=== PATIENT | female | born 1985 | race Caucasian/White ===

== ENCOUNTER 2022-01-26 20:29 | Emergency (ER) | payer OTHER, SELFPAY ==
[2022-01-26 20:43] VITALS: BP 127/96; PULSE 73; RESP 16; TEMP 36.3; O2SAT 99
[2022-01-26 21:00] VITALS: BP 126/82; PULSE 74; RESP 16; O2SAT 98
--- NOTE | 2022-01-26 21:17 | CRLHL7_ITS ---
For Patients: As a result of the Century Cures Act, medical imaging exams and procedure reports are released immediately into your electronic medical record. You may view this report before your referring provider. If you have questions, please contact your health care provider. INDICATION: Right upper quadrant abdomen pain. TECHNIQUE: Ultrasound abdomen limited. Sonographic images of the right upper quadrant were obtained using schmidt-scale and color Doppler images. COMPARISON: None. FINDINGS: Liver: Normal in size and echotexture. No suspicious masses. No intrahepatic biliary dilatation. Gallbladder: A 9 mm stone is in the gallbladder neck. Gallbladder is mostly decompressed creating artificial wall thickening. No pericholecystic fluid. Common bile duct: 4 mm. Pancreas: Unremarkable. Right kidney: Normal in size. Normal echotexture and cortex. No suspicious masses, stones, or hydronephrosis. Vasculature: Proximal abdominal aorta and IVC are unremarkable. IMPRESSION: Single prominent gallbladder stones in the gallbladder neck. Remainder of exam is unremarkable. No additional findings to suggest acute cholecystitis. Dictated by Paolo Méndez MD @ 01/26/2022 10:58:07 PM (Electronically Signed)
--- NOTE | 2022-01-26 21:19 | ED.GENADULT ---
HPI - General Adult General Time Seen by Provider: 21:19 Date Seen: 01/26/22 Chief complaint: Abdominal Pain Stated complaint: RT SIDE ABDOMINAL PAIN,CHILLS/FEVER Time Seen by Provider: 01/26/22 21:01 Source: patient Mode of arrival: ambulatory Limitations: no limitations History of Present Illness HPI narrative: 36-year-old female who comes in with about a week of right upper abdominal pain radiating into the right back. This is been fairly constant and is described as aching. Does not seem to be worse with movement or eating. Nausea without vomiting. Looser stools than usual. Denies urinary symptoms. But yesterday felt ill with fatigue and some achiness, feels better today. No cough, shortness of breath, chest pain, or breathing difficulty. Has not taken anything today for her symptoms, did try Advil a couple days ago as well as Tums and [id number] antacids with minimal improvement. No prior surgeries. Home COVID test was negative and test was negative although patient has an IUD. Related Data Allergies Allergy/AdvReac Type Severity Reaction Status Date / Time amoxicillin Allergy Intermediate Rash Verified 01/03/22 09:55 Sulfa (Sulfonamide Allergy Intermediate Verified 01/26/22 20:51 Antibiotics) methylprednisolone Allergy Mild Hives Verified 01/03/22 09:55 oxycodone Allergy Mild Rash Verified 01/03/22 09:55 Clavulanate Allergy Intermediate Rash Uncoded 01/03/22 09:55 Review of Systems Status of ROS: Reports: 10 or more systems reviewed and unremarkable except as noted in History and below [facility] Medical History Acute bronchitis with symptoms greater than 10 days Depression Gestational diabetes mellitus (11/25/11) History of abnormal cervical Papanicolaou smear (11/25/11) History of adenomatous polyp of colon (12/16/19) History of ovarian cyst Surgical History History of sinus surgery (2011) Family History Paternal Grandfather Coronary artery disease Mother Diabetes Anxiety Depression Father Anxiety Social History Narrative: Does not exercise- will start again , RN [employer], works from home, 2 kids Non-smoker Social drinker- 0-1/week Smoking Status: Never smoker Do you use any of these nicotine containing products: None Second hand tobacco smoke exposure: No How often do you have a drink containing alcohol: never How often do you have six or more drinks on one occasion: Never AUDIT-C Alcohol total score: 0 Non-prescribed substance use: denies use Exam Narrative: Exam Narrative: General: Well-developed and well-nourished, no acute distress Head: Atraumatic and normocephalic Eyes: Pupils are equal reactive, extraocular motions intact, conjunctiva clear ENT: External nose and ears are normal, posterior pharynx without erythema or exudate Neck: No midline cervical tenderness, full spontaneous range of motion the neck, trachea midline, no adenopathy Heart: Regular rate and rhythm no murmurs or thrills Lungs: Clear to auscultation bilaterally without wheezes or crackles Abdomen: Soft, epigastric tenderness, nondistended with active bowel sounds Musculoskeletal: No tenderness, deformity, or edema Neurologic: Awake, alert, and oriented x3, no gross focal neurologic deficits, cranial nerves intact as tested Psych: Mood and affect are appropriate Skin: No rashes Const: Vital Signs, click to edit/add: Vital Signs - 24 hr 01/26/22 20:43 01/26/22 21:00 Temperature 97.3 F L Pulse Rate [Right Pulse Oximeter] 73 74 Respiratory Rate 16 16 Blood Pressure [Ri ght Upper Arm] 127/96 H 126/82 Pulse Oximetry 99 98 Oxygen Delivery Me thod Room Air Room Air Documenting provider has reviewed patient's vital signs: yes Course Course Hospital Course: Patient seen examined, prior records are reviewed. Differential diagnosis includes but not limited to gastritis, gastric ulcer, colitis, pancreatitis, acute cholecystitis, diverticulitis, appendicitis, urinary tract infection, bowel obstruction, perforation, kidney stone. Patient with aching right upper quadrant abdominal pain radiating to the right flank. Location and description seem to suggest acute cholecystitis or biliary colic, however minimal tenderness on exam and symptoms do not seem to be related to eating. Colitis also possible. Appendicitis less likely she has no right lower quadrant tenderness. Acute hepatitis possible, patient does not appear jaundiced. Labs and right upper quadrant ultrasound are ordered. Patient declines pain medication. Urinalysis ordered as well as this could be an atypical pyelonephritis or ureteral stone presentation. Reevaluation(s) Reevaluation #1: Labs so far reassuring with normal white blood cell count, normal LFTs. Urinalysis is not consistent with infection. Time: 22:10 Reevaluation #2: Ultrasound demonstrates a mobile gallstone, no pericholecystic fluid, no wall thickening, no Damon sign. No definite etiology for patient's seem so far, symptoms certainly could be related from biliary colic with her mobile gallstone intermittently causing obstruction but no indication of acute cholecystitis or biliary obstruction at this point. COVID test is ordered due to mental as it body aches, CT scan of the abdomen pelvis is ordered. If this is negative, patient be discharged home with symptom management. Time: 22:31 Reevaluation #3: Patient recheck. We discussed labs and ultrasound findings. We discussed CT scan. In absence of lab or physical findings of severe intra-abdominal infection or inflammation, no abdominal tenderness, normal white blood cell count, remaining labs reassuring, likelihood of intra-abdominal pathology is low. Patient agrees with plan to defer CT scan at this time. We discussed dietary treatment for biliary colic. COVID and influenza tests are pending. Time: 22:43 Vital Signs Vital signs: Initial Vital Signs Temperature 97.3 F L 01/26/22 20:43 Temperature Source Temporal Artery Scan 01/26/22 20:43 Pulse Rate 73 01/26/22 20:43 Pulse Rhythm 01/26/22 20:43 Respiratory Rate 16 01/26/22 20:43 Blood Pressure 127/96 H 01/26/22 20:43 Blood Pressure Mean 106 01/26/22 20:43 Blood Pressure Position Semi-Fowlers 01/26/22 20:43 Pulse Oximetry 99 01/26/22 20:43 Oxygen Delivery Method 01/26/22 20:43 Vital Signs Temperature 97.3 F L 01/26/22 20:43 Pulse Rate 73 01/26/22 20:43 Respiratory Rate 16 01/26/22 20:43 Blood Pressure 127/96 H 01/26/22 20:43 Pulse Oximetry 99 01/26/22 20:43 Oxygen Delivery Method 01/26/22 20:43 Temperature 97.3 F L 01/26/22 20:43 Pulse Rate 74 01/26/22 21:00 Respiratory Rate 16 01/26/22 21:00 Blood Pressure 126/82 01/26/22 21:00 Pulse Oximetry 98 01/26/22 21:00 Oxygen Delivery Method 01/26/22 21:00 Medical Decision Making Medical Records Medical records reviewed: Yes I reviewed the patient's medical records Lab Data Lab results reviewed: Yes I reviewed the patient's lab results Labs: Lab Results 01/26/22 01/26/22 01/26/22 Range/Units 21:30 21:30 21:30 WBC 7.29 (4.50-11.00) K/uL RBC 4.56 (4.00-5.20) m/uL Hgb 13.6 (12.0-16.0) gm/dL Hct 40.3 (33.0-51.0) % MCV 88 (80-100) fL MCH 30 (26-34) pg MCHC 34 (32-36) gm/dL RDW Coeff of Kavin 11.9 (11.5-15.5) % Plt Count 236 (140-440) K/uL Neut % (Auto) 47.0 (42.0-72.0) % Lymph % (Auto) 43.1 (20-44) % [place] % (Auto) 7.8 (0.0-11.0) % Eos % (Auto) 1.1 (0.0-7.0) % Baso % (Auto) 0.3 (0.0-3.0) % Neut # (Auto) 3.40 (1.7-7.0) K/uL Lymph # (Auto) 3.10 H (0.90-2.90) K/uL [place] # (Auto) 0.60 (0.00-0.90) K/UL Eos # (Auto) 0.10 (0.00-0.50) K/uL Baso # (Auto) 0.00 (0.00-0.30) K/uL Abs Immat Gran (auto) 0.10 (0.00-0.30) K/uL Imm/Tot Granulo (auto) 0.7 % Sodium 138 (135-149) mmol/L Potassium 3.4 L (3.6-5.1) mmol/L Chloride 104 (96-114) mmol/L Carbon Dioxide 31 (20-32) mmol/L BUN 12 (5-24) mg/dL Creatinine 0.7 (0.5-1.5) mg/dL Estimated GFR 114 ml/min Glucose 88 (60-115) mg/dL Calcium 8.7 (8.4-10.6) mg/dL Total Bilirubin < 0.1 L (0.1-1.5) mg/dL Direct Bilirubin 0.0 (0.0-0.5) mg/dL AST 32 (12-35) U/L ALT 24 (4-35) U/L Alkaline Phosphatase 93 (40-150) U/L Total Protein 7.3 (6.0-8.3) g/dL Albumin 4.3 (3.3-5.0) g/dL Lipase 165 (23-300) U/L Urine Color (Yellow) Urine Appearance (Clear) Urine pH (5.0-8.5) Ur Specific [place] (1.000-1.030) Urine Protein (Negative) Urine Glucose (UA) (Negative) Urine Ketones (Negative) Urine Blood (Negative) Urine Nitrite (Negative) Urine Bilirubin (Negative) Urine Urobilinogen (0.2-1.0) Ur Leukocyte Esterase (Negative) Urine RBC (0-2) Urine WBC (0-5) Ur Squamous Epith Cells (None-Few) Amorphous Sediment (None) Urine Bacteria (None) Urine Mucus (None) 01/26/22 Range/Units 21:35 WBC (4.50-11.00) K/uL RBC (4.00-5.20) m/uL Hgb (12.0-16.0) gm/dL Hct (33.0-51.0) % MCV (80-100) fL MCH (26-34) pg MCHC (32-36) gm/dL RDW Coeff of Kavin (11.5-15.5) % Plt Count (140-440) K/uL Neut % (Auto) (42.0-72.0) % Lymph % (Auto) (20-44) % [place] % (Auto) (0.0-11.0) % Eos % (Auto) (0.0-7.0) % Baso % (Auto) (0.0-3.0) % Neut # (Auto) (1.7-7.0) K/uL Lymph # (Auto) (0.90-2.90) K/uL [place] # (Auto) (0.00-0.90) K/UL Eos # (Auto) (0.00-0.50) K/uL Baso # (Auto) (0.00-0.30) K/uL Abs Immat Gran (auto) (0.00-0.30) K/uL Imm/Tot Granulo (auto) % Sodium (135-149) mmol/L Potassium (3.6-5.1) mmol/L Chloride (96-114) mmol/L Carbon Dioxide (20-32) mmol/L BUN (5-24) mg/dL Creatinine (0.5-1.5) mg/dL Estimated GFR ml/min Glucose (60-115) mg/dL Calcium (8.4-10.6) mg/dL Total Bilirubin (0.1-1.5) mg/dL Direct Bilirubin (0.0-0.5) mg/dL AST (12-35) U/L ALT (4-35) U/L Alkaline Phosphatase (40-150) U/L Total Protein (6.0-8.3) g/dL Albumin (3.3-5.0) g/dL Lipase (23-300) U/L Urine Color Yellow (Yellow) Urine Appearance Clear (Clear) Urine pH 8.0 (5.0-8.5) Ur Specific [place] 1.020 (1.000-1.030) Urine Protein Negative (Negative) Urine Glucose (UA) Negative (Negative) Urine Ketones Negative (Negative) Urine Blood Negative (Negative) Urine Nitrite Negative (Negative) Urine Bilirubin Negative (Negative) Urine Urobilinogen 0.2 (0.2-1.0) Ur Leukocyte Esterase Negative (Negative) Urine RBC 0-2 (0-2) Urine WBC 0-2 (0-5) Ur Squamous Epith Cells None (None-Few) Amorphous Sediment Moderate A (None) Urine Bacteria Few A (None) Urine Mucus Few A (None) Discharge Plan Discharge Clinical Impression: Cholelithiasis, Biliary colic, Right lateral abdominal pain Condition: Improved Instructions: Biliary Colic (ED), Gallstones (ED) Additional Instructions: Tylenol or ibuprofen for pain. Follow-up with general surgery. Activity Level: No Restrictions Discharge Diet: Low Fat/Low Cholesterol Follow Up/Referrals: Almaz Rose PA-C [Primary Care Provider] - She Arana MD [Staff Physician] - Shanae Aguilera MD [Staff Physician] - Stand Alone Forms: [employer] Info Instructions
[2022-01-26 21:44] LABS: Appearance Urine Clear (Clear); Bilirubin Urine Negative (Negative); Blood Urine Negative (Negative); Color Urine Yellow (Yellow); Glucose Urine Negative (Negative); Ketones Urine Negative (Negative); Leukocyte Esterase Urine Negative (Negative); Nitrite Urine Negative (Negative); Protein Urine Negative (Negative); Urobilinogen Urine 0.2 (0.2-1.0)
[2022-01-26 21:55] LABS: Amorphous Sediment Urine Moderate; Bacteria Urine Few; Mucus Urine Few; RBC Urine 0-2 (0-2); WBC Urine 0-2 (0-5)
[2022-01-26 21:58] LABS: Hematocrit 40.3 % (33.0-51.0); Hemoglobin* 13.6 gm/dL (12.0-16.0); Mean Corpuscular HGB Conc 34 gm/dL (32-36); Mean Corpuscular Hemoglobin 30 pg (26-34); Mean Corpuscular Volume 88 fL (80-100); Red Blood Count 4.56 m/uL (4.00-5.20); White Blood Count* 7.29 K/uL (4.50-11.00)
[2022-01-26 21:59] LABS: Basophils Percent Auto 0.3 % (0.0-3.0); Eosinophils Percent Auto 1.1 % (0.0-7.0); Immature Granulocytes Pct Auto 0.7 %; Lymphocytes Percent Auto 43.1 % (20-44); Monocytes Percent Auto 7.8 % (0.0-11.0); Platelet Count* 236 K/uL (140-440); RDW Coefficient of Variation % 11.9 % (11.5-15.5); Slide Review Reflex No
[2022-01-26 22:01] LABS: Albumin* 4.3 g/dL (3.3-5.0)
[2022-01-26 22:02] LABS: Chloride* 104 mmol/L (96-114); Potassium* 3.4 mmol/L (3.6-5.1); Sodium* 138 mmol/L (135-149)
[2022-01-26 22:05] LABS: Alanine Aminotransferase* 24 U/L (4-35); Alkaline Phosphatase* 93 U/L (40-150); Aspartate Amino Transferase* 32 U/L (12-35); Blood Urea Nitrogen* 12 mg/dL (5-24); Carbon Dioxide* 31 mmol/L (20-32); Creatinine* 0.7 mg/dL (0.5-1.5); Estimated Glomerular Filt Rate 114 ml/min; Lipase* 165 U/L (23-300); Total Protein* 7.3 g/dL (6.0-8.3)
[2022-01-26 22:06] LABS: Bilirubin Total* < 0.1 mg/dL (0.1-1.5); Calcium* 8.7 mg/dL (8.4-10.6); Glucose* 88 mg/dL (60-115)
[2022-01-26 22:58] VITALS: BP 140/84; PULSE 80; RESP 18; O2SAT 99
[2022-01-26 23:18] LABS: PCR FLU A Negative PCR FLU A (Negative); PCR FLU B Negative PCR FLU B (Negative)
[2022-01-26 23:20] LABS: SARS PCR* Negative SARS-CoV-2 (Negative)
== END 2022-01-26 22:58 | disposition home or self-care (01) ==
PROVIDERS: Emergency Provider Family Medicine; PCP Physician Assistant Medical
DX: K80.51 Calculus of bile duct without cholangitis or cholecystitis with obstruction (principal)
CPT/HCPCS: 36415; 76705; 80048; 80076; 81001; 83690; 85025; 87086; 87502; 87635; 99284

== ENCOUNTER 2022-03-10 07:11 | Day surgery (SDC) | payer OTHER, SELFPAY ==
[2022-03-10] VITALS (17 sets, daily range): BP systolic 89–130; BP diastolic 50–82; PULSE 66–88; RESP 14–16; TEMP 36.8–37.1; O2SAT 92–100; BMI 33.4
[2022-03-10 07:41] LABS: Ur HCG Qualitative* Negative (Negative)
[2022-03-10] MEDS: LACTATED RINGERS 1000 ML 1,000 ML 100 ML IV ×2 (07:58→10:30)
[2022-03-10] MEDS: SODIUM CHLORIDE 0.9 % (FLUSH) 10 ML SYRINGE IVF (07:58)
[2022-03-10] MEDS: CIPROFLOXACIN 400 MG/200 ML inj IVPB (08:30)
--- NOTE | 2022-03-10 08:49 | SUR.OPER ---
Patient was transferred from [facility] to OR4 by JACOBY Tomas. Patient was assisted to transfer to OR table. Patient was covered by 2 warm blankets.
[2022-03-10] MEDS: BUPIVACAINE 0.25% 30 ML INJECTION (09:10)
--- NOTE | 2022-03-10 09:15 | P.GSOP_ITS ---
Operative Note Date of procedure: 03/10/22 Type of Procedure: Laparoscopic cholecystectomy Procedure Description: After discussing the risks and benefits of the procedure, the patient signed informed consent.? The operative site was marked and the patient was brought to the operating room and placed on the operating table in supine position.? Care was taken to pad the patient's pressure points.?? The patient was then intubated by anesthesia.?? The operative site was then prepped and draped in the usual sterile fashion.? A time-out was then performed. Entrance to the abdomen was gained via a 5 mm Visiport in the left upper quadrant. The abdomen was insufflated and briefly surveyed for signs of injury. There was none. A 10 mm umbilical port was placed as well as 2 working ports along the right costal margin, all under direct vision. The patient was then p laced in reverse Trendelenburg position with the right side up. The gallbladder fundus was grasped and retracted cephalad. The infundibulum was grasped. A combination of hook cautery and blunt dissection was used to carefully dissect out the cystic duct and artery until they could clearly be seen entering the gallbladder without any intervening structures. The gallbladder was dissected off the cystic plate to achieve the critical view. Once this was achieved the cystic duct and artery were each clipped with 2 clips proximally and 1 clip distally and transected with the scissors. The gallbladder was then taken off of the liver bed and removed from the abdomen using an Endo-Catch bag. The gallbladder bed was surveyed for hemostasis which appeared adequate. The umbilical port fascia was closed with 0 Vicryl using a [place] technique. The remaining ports were then removed and the abdomen desufflated. The skin was closed with absorbable subcuticular suture. Sterile dressings were then applied. Instrument sponge and needle counts were correct at the end of the case. The patient was then woken and transferred to the PACU in stable condition. ?? The patient tolerated the procedure well. Findings: CHOLELITHIASIS Anesthesia: GETA Surgeon: Shanae Aguilera MD Estimated blood loss (mL): 5 Condition: stable Disposition: PACU
--- NOTE | 2022-03-10 09:30 | W.ANESCHARGE ---
Anesthesia Charges Start Date/Time Anesthesia Start Date: 03/10/22 Anesthesia Start Time: 08:19 Stop Date/Time Anesthesia Stop Date: 03/10/22 Anesthesia Stop Time: 09:28 Summary Emergency: No
[2022-03-10] MEDS: fentaNYL 100 MCG/2 ML inj 50 MCG IVP ×2 (09:40→10:01)
--- NOTE | 2022-03-10 09:48 | W.ANESCHARGE ---
Anesthesia Charges Start Date/Time Anesthesia Start Date: 03/10/22 Anesthesia Start Time: 08:19 Stop Date/Time Anesthesia Stop Date: 03/10/22 Anesthesia Stop Time: 09:28 Summary Emergency: No
[2022-03-10] MEDS: METOCLOPRAMIDE HCL 5 MG/ML INJ 10 MG IVP (10:11)
[2022-03-10] MEDS: HYDROCODONE-ACETAMIN 5-325 MG 1 TAB PO (12:00)
== END 2022-03-10 12:25 | disposition home or self-care (01) ==
PROVIDERS: Anesthesiology; PCP Physician Assistant Medical; Visit Provider Surgery
PROC: 0FT44ZZ Resection of Gallbladder, Percutaneous Endoscopic Approach (ICD-10-PCS; CPT 47562; principal; 2022-03-10 08:55)
DX: K80.10 Calculus of gallbladder with chronic cholecystitis without obstruction (principal)
CPT/HCPCS: 47562; 00790; 00860; 81025; 88304; A9270; J0330; J0744; J1100; J1885; J2250; J2405; J2704; J2710; J2765; J3010; J3490; J7120

== ENCOUNTER 2023-10-01 07:40 | Outpatient (CLI) | payer OTHER, SELFPAY ==
--- OUTSIDE RECORDS SUMMARY | 2023-10-01 07:43 | XMS_ITS | Data Portability ---
Author Name Unknown Address [address] [place] [address] Phone [phone] Organization [facility] Address [address] [place] [address] Care Team Providers Care Track Worker Name Role Phone MAGNUS LYLE Primary Care Provider Assessment No assessment recorded. Plan of Treatment Reminders Order Date Submit Date Provider Last Modified By Organization Details Last Modified Time Details Appointments None recorded. Lab urinalysi s, dipstick 2022 023 [email or web address] [facility], [address], [place], [address], 3 12:35:57 urinalysi s, dipstick 2022 023 [email or web address] [facility], [address], [place], [address], 3 10:55:24 Referral pelvic floor therapy referral - Please contact patient to schedule 2022 023 [email or web address] [facility], [address] [place], [address], 10:47:53 Procedures None recorded. Surgeries None recorded. Imaging None recorded. Medication Orders Flomax 0.4 mg capsule 2022 023 [id number], [address] [place], [place], [phone], 3 12:34:45 oxybutyni n chloride ER 10 mg tablet,ex tended release 24 hr 2022 023 [id number], [address] [place], [place], [phone], 11:01:32 Patient TargetsNo targets recorded. Patient InstructionsNo instructions recorded. Reason for Referral Pelvic Floor Therapy Referra l for Overactive bladder Please contact patient to schedule Referring Physician: Grady Hart, Urology, Encounter Date: 11/24/2022 Results Created Date Observation Date Name Description Value Unit Range Abnormal Flag LastModifiedBy Organization Detail LastModifiedTime 10/14/1910/13/2022 urina lysis , dipst ick pH-Status 6.5 Not Available [facility] [address], [place], [address], 10/13/2022 10:18:23 11/25/19 23 11/24/2022 urina lysis , dipst ick Color-Status Yellow Not Available [facility] [address], [place], [address], 11/24/2022 12:35:04 11/25/19 23 11/24/2022 urina lysis , dipst ick Clarity-Stat us Clear Not Available [facility] [address], [place], [address], 11/24/2022 12:35:04 11/25/19 23 11/24/2022 urina lysis , dipst ick Glucose-Stat us Negati ve Not Available [facility] [address], [place], [address], 11/24/2022 12:35:04 11/25/19 23 11/24/2022 urina lysis , dipst ick Bilirubin-St atus Negati ve Not Available [facility] [address], [place], [address], 11/24/2022 12:35:04 11/25/19 23 11/24/2022 urina lysis , dipst ick Ketones-Stat us Negati ve Not Available [facility] [address], [place], [address], 11/24/2022 12:35:04 11/25/19 23 11/24/2022 urina lysis , dipst ick Sp [place]-Stat us 1.010 Not Available [facility] [address], [place], [address], 11/24/2022 12:35:04 11/25/19 23 11/24/2022 urina lysis , dipst ick pH-Status 7.5 Not Available [facility] [address], [place], [address], 11/24/2022 12:35:04 11/25/19 23 11/24/2022 urina lysis , dipst ick Urobilinogen -Status 0.2 Not Available [facility] [address], [place], [address], 11/24/2022 12:35:04 11/25/19 23 11/24/2022 urina lysis , dipst ick Nitrates-Sta tus negati ve Not Available [facility] [address], [place], [address], 11/24/2022 12:35:04 11/25/19 23 11/24/2022 urina lysis , dipst ick Blood-Status Negati ve Not Available [facility] [address], [place], [address], 11/24/2022 12:35:04 11/25/19 23 11/24/2022 urina lysis , dipst ick Leuko-Status Negati ve Not Available [facility] [address], [place], [address], 11/24/2022 12:35:04 11/25/19 23 11/24/2022 urina lysis , dipst ick Specimen Type Voided Not Available [facility] [address], [place], [address], 11/24/2022 12:35:04 10/11/19 23 02/10/2022 CT, abdom en + pelvi s, w/ contr ast No observ ation record ed. [email or web address] Not Available 10/13/2022 10:57:17 Result Notes None recorded. Procedures Surgical History Date Name Laterality Status Provider Name and Address Organization Details Recorded Time 3 Bladder Scan completed GRADY HART PA-C [address] [place], [place] [address], [place], [address], [facility] 11/24/2022 12:35:01 3 Bladder Scan completed Telma jiang [facility] 10/13/2022 10:18:19 Imaging Results Imaging Date Name Status LastModified by Organiz ation Details LastModified Time 02/10/2022 CT, abdomen + pelvis, w/ contrast completed Information not available 10/13/2022 10:57:17 Procedure Notes None recorded. Medical Equipment None Reported. Allergies Allergen ID Allergen Name Allergen Category Reaction Reaction Severity Criticality Documentation Date Start Date Code Code System Note Provider Name and Address Organization Details Recorded Time 100587 Substance with sulfonami de structure and antibacte rial mechanism of action (substanc e) medicatio n Not available Not available Not available 10/13/2022 30652 8003 SNOMED Telma jiang [facility] 3 10:21:39 510714 oxycodone medicatio n Not available Not available Not available 10/13/2022 7804 RxNorm Telma jiang [facility] 3 10:23:51 944318 methylpre dnisolone medicatio n Not available Not available Not available 10/13/2022 6902 RxNorm Telma Boss [facility] [place] [facility] 3 10:24:06 Medications Name Sig Start Date Stop Date Status Note LastModified by Organization Details LastModified Time prednisone 10 mg tablet TAKE 3 TABLETS BY MOUTH ONCE DAILY WITH A MEAL FOR 2 DAYS THEN TAKE 2 TABLETS EVERY DAY FOR 2 DAYS THEN TAKE 1 TABLET EVERY DAY FOR 2 DAYS 10/13 completed Not Available Not Available Not Available trazodone 50 mg tablet active Not Available Not Available Not Available oxybutynin chloride ER 10 mg tablet,exte nded release 24 hr TAKE 1 TABLET BY MOUTH NEEDED active Not Available Not Available No t Available hydrocodone 5 mg-acetamin ophen 325 mg tablet TAKE 1 TABLET BY MOUTH EVERY 6 HOURS NEEDED FOR PAIN. DO NOT TAKE AT THE SAME TIME ALPRAZOLA M OR OTHER BENZODIAZ EPINE MEDICATIO NS 10/13 completed Not Available Not Available Not Available ciprofloxac in 250 mg tablet 10/13 completed Not Available Not Available Not Available alprazolam 0.5 mg tablet TAKE 1 TABLET BY MOUTH DAILY NEEDED FOR ANXIETY active Not Available Not Available No t Available doxycycline monohydrate 50 mg capsule TAKE ONE CAPSULE BY MOUTH TWICE DAILY WITH FOOD AND WATER 11/24 completed Not Available Not Available Not Available tamsulosin 0.4 mg capsule TAKE 1 CAPSULE BY MOUTH EVERY DAY 11/24 completed Not Available Not Available Not Available amitriptyli ne 10 mg tablet 10/13 completed Not Available Not Available Not Available metronidazo le 0.75 % topical cream APPLY THIN LAYER TO ENTIRE FACE 1-2X DAILY , ONGOING 11/24 completed Not Available Not Available Not Available clindamycin 1 % lotion APPLY THIN LAYER TO ENTIRE FACE ONCE DAILY AT NIGHT 11/24 completed Not Available Not Available Not Available escitalopra m 20 mg tablet active Not Available Not Available Not Available nitrofurant oin monohydrate /macrocryst als 100 mg capsule TAKE 1 CAPSULE BY MOUTH TWICE DAILY FOR 5 DAYS 10/13 completed Not Available Not Available Not Available sulfacetami de sodium-sulf ur 8 %-4 % topical suspension WASH FACE 1-2X DAILY LATHER AND LET SIT FOR SEVERAL MINUTES BEFORE RINSING 11/24 completed Not Available Not Available Not Available Abigail Allergy active Not Available Not Available Not Available Flonase Allergy Relief active Not Available Not Available Not Available Vitals Date Recorded Body height Body mass index (BMI) Body weight Provider Name and Address Organization Details Last Updated DateTime 10/13/2022 165.1 cm 33.3 kg/m2 72746.47 g Telma jiang [facility] 10/13/2022 10:20:55 Date Recorded Body height Body mass index (BMI) Body weight Provider Name and Address Organization Details Last Updated DateTime 11/24/2022 165.1 cm 33.3 kg/m2 65851.47 g GRADY HART PA-C [address] [place] [address] [address], [place], [address] 11/24/2022 12:20:17 Social History Question Answer Notes LastModified by Organizat ion Details LastModified Time Tobacco Smoking Status Never Smoker Telma jiang [facility] 10/13/2022 10:22:48 What Was The Date Of Your Most Recent Tobacco Screening? 11/24/2022 Information not available 11/24/2022 Sex: Female Functional Status None recorded. Mental Status None recorded. Family History Nothing Reported. Medical History Condition Response Diabetes N Sexually Transmitted Infection N Other N Bleeding Disorder N High Blood Pressure N Kidney Stones N High Cholesterol N GERD/Acid Reflux N Heart Disease N Cancer N Lung Disease N Depression N Gynecological History Statement/Question Response Leaking urine with intercourse N Sexually Active? Y Pain with intercourse Y Obstetrics History GPAL:G 2 P 0 0 0 0 Past Encounters Encounter ID Performer Location Encounter Start Date Encounter Closed Date Diagnosis/Indication Diagnosis SNOMED-CT Code [id number] [facility] [address] [place] [address] 10/13/2022 09:57:49 10/17/2022 14:53:39 Dysuria 31044282 Overactive bladder 73087 7000 Cystocele [id number] Incomplete emptying of bladder [id number] GRADY HART PA-C [facility] [address] [place] [address] 11/24/2022 12:14:02 12/01/2022 08:31:32 Overactive bladder [id number] Health Concerns Section Related Observation LastModified by Organization Detai ls LastModified Time None Recorded Concern Status LastModified by Organization Details LastModified Time None Recorded Advance Directives Directive None Recorded Payers Encounter Date Sequence Insurance Name Policy Number Policy Balderas Covered Member ID Balderas Member ID Guarantor Name 11/24/2022 1 [facility] Shanae Paizival [id number] Shanae Spain 10/13/2022 1 [facility] Rosival [id number] Shanae [place] Notes Date Note Type Note Provider Name and Address Organization Details Recorded Time 10/13/2022 text/html HPI Notes: 37yo F referred to urology for bladder pain and urinary frequency. She reports UTI symptoms intermittently since having children (2 vaginal deliveries). Worsening over the last few years. Used to get dysuria/frequency with UTIs, but now feels like infections present with bladder spasm pain which radiates to her low mid-back. Occasionally dysuria, Azo helps. Recently, treated for UTI with [facility] a couple times, antibiotics have helped symptoms. More recently feels bladder discomfort is debilitating at times. Spasm attacks last 1-3 minutes. Tried amitriptyline for possible interstitial cystitis from her PCP but she did not tolerate this. Symptoms worse when drinking alcohol. Multiple recent UCx negative. She does drink a lot of water. Has cut back on alcohol due to worsening symptoms. Previously worked as nurse, held bladder all day. CT AP W in January 2022 reveals non-obstructing 4mm right renal stone, lower pole. Denies hematuria, flank pain. No h/o passing stones, recurrent UTI. Only abdominopelvic surgery is gall baldder removal (2021). UA negative PVR 123cc GRADY HART PA-C [address] [place] [address],[address], [place], [address], [place] [facility] 10/13/2022 16:56:30 11/24/2022 text/html HPI Notes: 36 yo F here for follow up on suprapubic pain, urinary frequency, dysuria. Previously treated for UTIs frequently via [facility], but whenever she gets culture has been negative. Suspected possible OAB vs. IS so saw me in September - also had some incomplete emptying at that time so we started tamsulosin and PRN trial of oxybutynin. Did not tolerate tamsulosin d/t dizziness. Did not try oxybutynin due to fear of retention. Has had improvement / no trouble with dysuria or infections since last visit. Still with occasional suprapubic cramping which radiates to her low back. Alcohol and caffeine trigger symptoms. Usually associated with increased urinary frequency. She does have IUD; unsure if [employer]ICE or bladder pain. Reports she has been doing kegel exercises most of her adult life. Denies hematuria, flank pain. No h/o passing stones, recurrent UTI. PVR 77 cc UA negative ___ -Previously worked as nurse, held bladder all day. -CT AP W in January 2022 reveals non-obstructing 4mm right renal stone, lower pole. -gall baldder removal (2021) GRADY HART PA-C [address] [place] [address],[address], [place], [address], [facility] 11/24/2022 13:24:35 OBGyn Episode No OBEpisode recorded.
--- OUTSIDE RECORDS SUMMARY | 2023-10-01 07:43 | XMS_ITS | Clinical Summary ---
Author Name Unknown Organization [facility] Address [place], [place] [address] Care Team Providers Care Productivity Engineer Name Role Phone Almaz Rose Primary Care Provider Allergies Active Allergy Reactions Criticality Noted Date Comments Methylprednisolone Acetate Other - Descr amilcar In Comment Field 08/20/2020 depression Oxycodone-Acetaminophen Rash,Itching 04/18/2013 Sulfamethoxazole-Trimethopr im Anaphylaxis High 12/01/2018 Lip swelling Medications Medication Sig Dispensed Refills Start Date End Date Status fluticasone (50 mcg per actuation) nasal solution (FLONASE) Inhale 2 Sprays into both nostrils once daily. 1 Bottle 0 04/18/2013 Active ondansetron (ZOFRAN ODT) 4 mg disintegrating tabletIndications:Na usea Take 4 mg by mouth every 8 hours if needed. 30 tablet 1 08/20/2020 Active propranoloL (INDERAL) 20 mg tablet Take 20 mg by mouth. 05/03/2019 Active ALPRAZolam (XANAX) 0.5 mg tabletIndications:An xiety Take 1 tab daily as needed for anxiety. 15 Tablet 02/03/2022 Active fexofenadine HCl (ANTONIO ALLERGY ORAL) Take by mouth. Active traZODone (DESYREL) 50 mg tabletIndications:In somnia, idiopathic TAKE 1 TABLET BY MOUTH AT BEDTIME , MAY REPEAT ONCE 180 Tablet 3 05/15/2023 Active escitalopram oxalate (LEXAPRO) 20 mg tabletIndications:An xiety TAKE 1 TABLET BY MOUTH IN THE MORNING 90 Tablet 1 07/14/2023 Active polyethylene glycol-electrolyte (GOLYTELY) 236-22.74-6.74 -5.86 gram suspensionIndication s:Rectal bleeding Drink 2 liters the day before colonoscopy and 2 liters 6 hours before colonoscopy appointment 4000 mL 09/07/2023 Active Hospital, Clinic, or Other Facility Administered Medication Ordered Dose Route Frequency Start Date End Date Status levonorgestrel intrauterine device (MIRENA) 1 DeviceIndications:Encounter for IUD insertion 1 Device IU Q 5 YEARS 10/30/2020 Active Active Problems Problem Noted Date Diagnosed Date Pap smear for cervical cancer screening 04/30/20 23 Overview: 04/22/2023: NIL/HPV negative Plan: Pap and HPV in 5 years. Encounters Date Type Department Care Team Description 09/10/[address] [address] Jac Reagan MD Appointment Reminder (Colonoscopy 2023 arriving at 0730) 08/27/2023 11:45 AM COAT BASTER Ancillary Procedure [address] [address] 08/27/2023 Travel 08/10/2023 9:15 AM COAT BASTER Ancillary Procedure [address] [address] 08/10/2023 8:10 AM COAT BASTER Office Visit [address] [address] Almaz Rose PA Foot Pain/problem (R foot pain,bottom of foot, can pinpoint spot, no known injury); Rectal Problem (Pain and bleeding, happening more than it did before) 08/10/[address] [address] Jac Reagan MD Referral 08/10/2023 Travel 07/13/[address] [address] Almaz Rose PA Refill Request (Escitalopram Oxalate) from Last 3 Months Immunizations Name Administration Dates Next Due COVID-19 vaccine (BONESUPPORT-Bio NTech 30mcg/0.3mL) 12YO+ BIVALENT SHAMIKA MANSFIELD 05/23/2022 COVID-19 vaccine (SchoologyBio NTech 30mcg/0.3mL) PF, MDV 05/20/2021,11/04/2020,10/14/2020 DTP 02/23/1990, 7,03/20/1985,01/17,1984 Hepatitis A (Adult) 05/03/2019 Hepatitis B (Peds) 07/19/1999,02/28/1999, 999 Human Papilloma Virus Vaccine 01/20/2008, 008,11/18/2006 Influenza Virus, Unspecified 05/27/2004 Influenza, IIV3 (Age 6-35 mos) 3,03/15/2012,04/07/2011,03/26 Influenza, IIV4 03/03/2022,,04/20/2020,05/03,03/20/2016,03/29/2014 Influenza, IIV4 (=>6mos) MDV 03/23/2018,04/09/20 17,04/12/2015 MMR 02/27/2011,01/18/1986 MMRV 1989 Meningococcal Vaccine (Menomune) 03/02/2003 Oral Polio Vaccine 02/23/1990, 7,03/20/1985,01/17,1984 Recombivax Hb (dialysis) 05/29/2022 TD, UNSPECIFIED 12/01/2018 Td (Age >=7 Years) 12/01/2018 Tdap 01/20/2008,11/18/2006 Typhoid (injectable) 07/05/2019 Family History Medical History Relation Name Comments Hypertension Father Other Father substance abuse Insulin resistance Mother Relation Name Status Comments Father Mother Social History Tobacco Use Types Packs/Day Years Used Date Smoking Tobacco: Never Smokeless Tobacco: Never Tobacco Cessation:Counseling Given: Yes Alcohol Use Standard Drinks/Week Comments Not Currently 0 (1 standard drink = 0.6 oz pur e alcohol) very infrequent PHQ-2 Answer Date Recorded PHQ-2 TOTAL SCORE 0 05/23/2022 Social Connections Answer Date Recorded Frequency of Communication with Friends and Fami ly 0 08/10/2023 Financial Resource Strain Answer Date R ecorded Difficulty of Paying Living Expenses 3 08/10/2023 Difficulty of Paying Living Expenses Not on file 08/10/2023 Food Insecurity Answer Date Recorded Worried About Running Out of Food in the Last Ye ar 1 08/10/2023 Transportation Needs Answer Date Record ed Lack of Transportation (Medical) 1 08/10/2023 Housing Stability Answer Date Recorded Unable to Pay for Housing in the Last Year 1 08/10/2023 Sex and Gender Information Value Date Recorded Sex Assigned at Not on file Gender Identity Not on file Sexual Orientation Not on file Obstetrics History Para Term AB IAB SAB Ectopic Multiple Livin g Live Births 2 2 2 2 2 Date Outcome GA Total Labor Labor//3rd Weight Sex Delivery Anes PTL Jany A1 A5 Name Cl in 2010 Term Vag Sulma ng 2013 Term Vag Sulma ng Comments GDM with pregnancies Children doing well Last Filed Vital Signs Vital Sign Reading Time Taken Comments Blood Pressure 121/86 08/10/2023 8:19 AM COAT BASTER Pulse 72 08/10/2023 8:19 AM COAT BASTER Temperature 36.7 ??C (98.1 ??F) 05/23/2022 12:[address] Respiratory Rate - - Oxygen Saturation 100% 05/23/2022 12:23 PM COAT BASTER Inhaled Oxygen Concentration - - Weight 92.5 kg (204 lb) 08/10/2023 8:19 AM COAT BASTER Height 166 cm (5' 5.35) 08/10/2023 8:19 AM COAT BASTER Body Mass Index 33.58 08/10/2023 8:19 AM COAT BASTER Plan of Treatment Upcoming Encounters Date Type Department Care Team (Late st Contact Info) Description 11/03/2023 10:00 AM CDT Office Visit [facility] [address] [place] [address] Jac Reagan MD [address] [place] [address] Health Maintenance Due Date Last Done Comments HIV for age 15-65 09/18/1999 Hepatitis C screening for age 18-79 2002 COVID-19 vaccine series ( season) 2023 05/23/2022, 05/20/2021, 11/04/2020, Additional history exists Depression screening for age 12+ 05/23/2023 05/23/2022, 08/20/2020 Influenza for age 9-49 02/21/2024 , 05/20/2021, 04/20/2020, Additional history exists BMI (ht and wt on same day) for age 18+ 08/10/2024 08/10/2023, 04/22/2023, 03/03/2022, Additional history exists Pap test for age 21-65 04/22/2028 3, 04/22/2023, 04/13/2018 (Verified in Care Everywhere or Patient Record), Additional history exists Tetanus booster 12/01/2028 12/01/2018, 11/20, 01/20/2008, Additional history exists Tdap Completed 01/20/2008, 11/18/2006 Pneumococcal series for age 6-64 Aged Out No longer eligible based on patient's age to complete this topic Procedures Procedure Name Priority Date/Time Associated Diagnosis Comments MR FOOT RIGHT WO Routine 08/27/2023 12:3 7 PM COAT BASTER Foot pain, right XR FOOT 3 VIEWS RIGHT Routine 08/10/2023 9:00 AM COAT BASTER Foot pain, right HPV THIN PREP Routine 04/22/2023 9:57 AM CDT Screening for cervical cancer from Last 3 Months or Most Recently Relevant to Health Maintenance Results * MR FOOT RIGHT WO (08/27/2023 12:37 PM COAT BASTER) Anatomical Region Laterality Modality FOOT R Magnetic Resonan ce 08/28/2023 8:00 AM COAT BASTER Impressions 08/28/2023 8:00 AM COAT BASTER 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 Low-grade stress injury could also contribute to the marrow edema appearance. Dictated by Kye Hilario MD @ 08/28/2023 8:00:07 AM (Electronically Signed) Narrative 08/28/2023 8:00 AM COAT BASTER For Patients: ??As a result of the Cures Act, medical imaging exams and procedure reports are released immediately into your electronic medical record. ??You may view this report before your referring provider. ??If you have questions, please contact your health care provider. INDICATION: One year of foot pain. COMPARISON: Plain film 10 August 2023. TECHNIQUE: Axial PD and STIR, coronal T1 and STIR and sagittal T1 and STIR right forefoot sequences. FINDINGS: Anatomic alignment of the Lisfranc midfoot with no degenerative or inflammatory change. Mild chronic pseudoarthrosis subtle cortical spurring with underlying patchy mild non confluent patchy STIR edema signal between 3rd and 4th proximal metatarsal metaphysis. An no fracture or bone lesion. Physiologic upper normal fluid 1st and 3rd intermetatarsal bursa. Normal metatarsophalangeal joints. Physiologic fluid 1st MTP. Procedure Note Kye Hilario MD - 08/28/2023 For Patients: As a result of the Cures Act, medical imagingexams and procedure reports are released immediately into your electronicmedical record. You may view this report before your referring provider.If you have questions, please contact your health care provider. INDICATION: One year of foot pain. COMPARISON: Plain film 10 August 2023. TECHNIQUE: Axial PD and STIR, coronal T1 and STIR and sagittal T1 and STIR rightforefoot sequences. FINDINGS: Anatomic alignment of the Lisfranc midfoot with no degenerative orinflammatory change. Mild chronic pseudoarthrosis subtle cortical spurringwith underlying patchy mild non confluent patchy STIR edema signal [id number] and 4th proximal metatarsal metaphysis. An no fracture or bone lesion.Physiologic upper normal fluid 1st and 3rd intermetatarsal bursa. Normalmetatarsophalangeal joints. Physiologic fluid 1st MTP. 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 Low-grade stress injury could also contribute to the marrowedema appearance. Dictated by Kye Hilario MD @ 08/28/2023 8:00:07 AM (Electronically Signed) Almaz RILEY MR * XR FOOT 3 VIEWS RIGHT (08/10/2023 9:00 AM COAT BASTER) Anatomical Region Laterality Modality FEET, FOOT R Computed Radiogr aphy Impressions 08/11/2023 2:07 PM COAT BASTER No acute bone abnormality. Dictated by: Hussein Hidalgo MD @ 08/11/2023 08:04:12 Signed by: Hussein Hidalgo MD @08/11/2023 8:04:12 AM (Electronic Signature) Narrative 08/11/2023 2:07 PM COAT BASTER INDICATION: Foot pain, right FINDINGS: Three views of the right foot were obtained. There is no fracture or dislocation. Almaz RILEY [facility] * HPV HIGH RISK (04/22/2023 9:57 AM CDT) TYPE 16 Negative Negative 04/24/2023 1:47 PM CDT [facility] TYPE 18 Negative Negative 04/24/2023 1:47 PM CDT [facility] OTHER HIGH RISK TYPES Negative Negative 04/24/2023 1:47 PM CDT [facility] Other (Cervical) Non-Blood / Unknown 04/22/2023 9:57 AM CDT 04/22/2023 4:53 PM CDT Narrative [facility] - 04/24/2023 1:47 PM CDT HPV types 16, 18, 31, 33, 35, 39, 45, 51, 52, 56, 58, 59, 66 and 68 DNA were undetectable or below the pre-set threshold. Methodology: Yariel John 4800 HPV Test Almaz RI[facility] [address] [place] [address], from Last 3 Months or Most Recently Relevant to Health Maintenance Care Teams Productivity Engineer Relationship Specialty Start Date End Date Almaz Rose PA [address] [place] [address] PCP - General Physician Pattern Layout Worker 10/22/20
--- OUTSIDE RECORDS SUMMARY | 2023-10-01 07:43 | XMS_ITS | Clinical Summary ---
Author Name Unknown Organization [facility] Address [address] [place] [address] Care Team Providers Care Workforce Specialist Name Role Phone Piper Michael MD Primary Care Provider Source Comments You are receiving this document as you are listed as the primary care provider,follow-up provider, or the patient has been referred to you for consultation.This is in compliance with the Medicare and[facility] Hospital[facility] EHR Incentive Program,which states Providers who transition their patient to another setting of careor provider of care or refers their patient to another provider of care shouldprovide summary care record for each transition of care or referral. [facility] Allergies Active Allergy Reactions Criticality Noted Date Comments Amoxicillin-Pot Clavulanate Itching 12/02/19 19 Sulfamethoxazole-Trimethoprim Anaphylaxis High 12/01 Lip swelling Oxycodone-Acetaminophen Itching,Rash 04/13/2018 Medications Medication Sig Dispensed Refills Start Date End Date Status CRANBERRY OR Active ALBUterol sulfate HFA 108 (90 Base) MCG/ACT inhalerIndications:Exerc ise-induced bronchospasm (HRC) Inhale 1-2 Puffs every 4 hours as needed for Wheezing. 1 Inhaler 1 9 Active ondansetron (ZOFRAN-ODT) 4 MG disintegrating tabletIndications:Nausea and Vomiting Take 1 Tablet by mouth every 8 hours as needed. Indications: Nausea and Vomiting 10 Tablet 1 9 Active propranolol (INDERAL) 20 MG tabletIndications:palpit ations Take 1 Tablet by mouth three times a day as needed. Indications: palpitations 30 Tablet 3 9 Active azelastine (ASTELIN) 0.1 % nasal solutionIndications:Seas onal and perennial allergic rhinoconjunctivitis Place 1 [place] into both nostrils two times a day. 30 mL 11 0 Active azelastine (OPTIVAR) 0.05 % ophthalmic solutionIndications:Seas onal and perennial allergic rhinoconjunctivitis Place 1 Drop into both eyes two times daily as needed. 6 mL 3 0 Active Fexofenadine HCl (ANTONIO ALLERGY OR) Acti ve escitalopram oxalate (LEXAPRO) 20 MG tabletIndications:Anxiet y (HRC),PMDD (premenstrual dysphoric disorder) Take 1.5 Tablets by mouth daily. Take 1 tab daily and add 10mg for 2 weeks prior to menses. 135 Tablet 2 0 Active bisacodyl (DULCOLAX) 5 MG enteric coated tablet Take 4 tablets by mouth once at 5 PM the evening before your procedure. 4 Tablet 0 Active polyethylene glycol-electrolyte (GO-LYTELY) 236 g oral solution Take as directed in patient instructions: 2000 ml at 6pm the evening before and 4 hours before leaving home the day of exam. 4000 mL 0 Active ALPRAZolam (XANAX) 0.5 MG tabletIndications:Anxiet y Take 1 Tablet by mouth at bedtime as needed. Indications: Feeling Anxious 30 Tablet 0 Active GIANVI 3-0.02 MG tabletIndications:PMDD (premenstrual dysphoric disorder) TAKE 1 TABLET BY MOUTH DAILY 90 Tablet 1 Active Active Problems Problem Noted Date Diagnosed Date Adenoma of colon 12/28/2019 Overview: Colonoscopy completed 11/2019, repeat in 5 years For tubular adenoma surveillance Chronic constipation 12/18/2019 Overview: Normal CT abd/pelvis, colonoscopy, celiac panel, TSH, Ca. Non-seasonal allergic rhinitis 12/01/2018 Exercise-induced bronchospasm 12/01/2018 Lactose intolerance 12/01/2018 PMDD (premenstrual dysphoric disorder) 8 Anxiety 04/13/2018 Chronic low back pain 04/13/2018 Overview: Herniated L4-L5. Sees chiropractor. Menometrorrhagia 04/13/2018 Immunizations Name Administration Dates Next Due 4vHPV (Gardasil) 01/20/2008,11/02/2007, 7 Chicken Pox - History of Illness 1989 DTP 02/23/1990, 7,03/20/1985,1984,1984 Flu Vac Preserv Free (3+yrs) 05/05/2013, 03/15/2012,04/07/2011,2009 Fluzone Qiv Multidose Vial 0 .25 (6-35 Mos) 03/23/2018,04/09/2017,04/12/2015 HepA Adult (19+ yrs) 05/03/2019 HepB Ped/Adol (0-18 yrs) 07/19/1999,02/28/1999,0 01/24/1999 Influenza IIV4 (Quadrivalent ) 0.5mL (63809) 05/03/2019,03/20/2016,03/29/2014 Influenza, Unspecified Formulation 05/27/2004 MMR 02/27/2011,01/18/1986 MPSV4 (Menomune) 03/02/2003 OPV, Trivalent (Orimune or tOPV) 990,09/15/1986,03/20/1985,1984,1984 Td (7+ yrs) 12/01/2018 Tdap 01/20/2008,11/18/2006 Typhoid (Typhim Vi, IM) 07/05/2019 Family History Medical History Relation Name Comments Adopted Mother Anxiety Mother Tremor Mother Coronary Artery Disease Paternal Grandfather [place] Cancer, Colon Paternal Grandmother Diabetes Paternal Grandmother Cancer, Breast Negative Family History Cancer, Ovary Negative Family History Relation Name Status Comments Father Alive Mother Alive Paternal Grandfather Paternal Grandmother Social History Tobacco Use Types Packs/Day Years Used Date Smoking Tobacco: Never Smokeless Tobacco: Never Alcohol Use Standard Drinks/Week Comments Yes 0 (1 standard drink = 0.6 oz pur e alcohol) 2 weekly PHQ-2 Answer Date Recorded PHQ-2 Score 0 12/09/2019 Sex and Gender Information Value Date Recorded Sex Assigned at Not on file Gender Identity Not on file Sexual Orientation Not on file Last Filed Vital Signs Vital Sign Reading Time Taken Comments Blood Pressure 115/73 12/16/2019 3:45 PM CDT Pulse 64 12/16/2019 4:00 PM CDT Temperature 36.7 ??C (98 ??F) 04/13/2018 10:46 AM CDT Respiratory Rate 16 12/16/2019 3:45 PM CDT Oxygen Saturation 100% 12/16/2019 4:00 PM CDT Inhaled Oxygen Concentration - - Weight 80.7 kg (178 lb) 12/16/2019 2:00 PM CDT Height 165.1 cm (5' 5) 12/16/2019 2:00 PM CDT Body Mass Index 29.62 12/16/2019 2:00 PM CDT Plan of Treatment Health Maintenance Due Date Last Done Comments Hep C Screening (Preventive Services) 1985 Adult Preventive Visit 2002 HPV Vaccine (3 - 3-dose series) 04/13/2008 01/20/2008, 11/02/2007, 11/18/2006 HepA (2 of 2 - Risk 2-dose series) 11/01/2019 05/03/2019 Cervical Cancer Screening 04/13/2021 04/13/2018 Asthma ACT 04/27/2021 04/27/2020, 05/03/2019 COVID-19 Vaccine (3 - 2022- season) 2023 11/04/2020, 10/14/2020 Influenza (#1) 2023 04/20/2020, 04/22, 03/23/2018, Additional history exists Colonoscopy 12/15/2024 12/16/2019 DTaP/Tdap/Td (9 - Tdap) 12/01/2028 12/02/19, 01/20/2008, 11/18/2006, Additional history exists Zoster/Shingles (1 of 2) 2034 IPV (Polio) Completed 02/23/1990, 08/21, 03/20/1985, Additional history exists HepB Completed 07/19/1999, 02/1999, 01/24/1999 MCV4 Aged Out 03/02/2003 No longer eligi ble based on patient's age to complete this topic HIV Screening (Preventive Services) Completed 12/14/2019 Hib Aged Out No longer eligi ble based on patient's age to complete this topic Pneumococcal Aged Out No longer eligi ble based on patient's age to complete this topic Procedures Procedure Name Priority Date/Time Associated Diagnosis Comments ENDOSCOPY, COLON, SCREENING/DIAGNOST IC Routine 12/16/2019 2:54 PM CDT Chronic constipation Right sided abdominal pain Abdominal bloating Hematochezia HIV 1/2 AG/AB 4TH GEN Routine 12/14/2019 9:57 AM CDT Screening for HIV (human immunodeficiency virus) ANATOMICAL PATH LIQUID BASED Routine 04/13/2018 11:30 AM CDT from Last 3 Months or Most Recently Relevant to Health Maintenance Results * Endoscopy, Colon, Screening/Diagnostic (12/16/2019 2:54 PM CDT) 12/16/2019 2:54 PM CDT Narrative [facility] ([facility]) - 12/16/2019 2:54 PM CDT Patient Name: Shanae Spain Procedure Date: 12/16/2019 2:54 PM Date of : 1985 Admit Type: Outpatient Age: 34 Note Status: Finalized Attending MD: Maicol Whittaker , Procedure: ? Colonoscopy Indications: ? Abdominal pain in the right lower ? quadrant, Constipation Providers: ? Maicol Whittaker, Minda Matute RN Patient Profile: ? 34 year old woman with history of ? chronic consipation here for ? evaluation of intemittent ? hematochezia, abdominal pain and ? bloating. Referring MD: ?Piper Michael MD Medicines: ? Midazolam 2 mg IV, Fentanyl 100 ? micrograms IV, Diphenhydramine 50 mg ? IV Complications: ? No immediate complications. Procedure: ? Pre-Anesthesia Assessment: ? - The following statement was ? reviewed with the patient during ? pre-procedure scheduling, and was ? again reviewed with the patient by ? the endoscopist immediately prior to ? the procedure during the consent ? process, with an emphasis on the ? first sentence: With any procedure ? there is a small but inherent risk of ? acquiring infection including, but ? not limited to, the novel coronavirus ? (COVID-19). Please be aware that ? there is a potential for your ? procedure or surgery to be postponed, ? or possibly canceled, if you should ? test positive for COVID-19. There is ? also a potential for postponement of ? your procedure if there is a ? significant reduction in resources ? required to safely perform your ? procedure. ? After I obtained informed consent, ? the scope was passed under direct ? vision. Throughout the procedure, the ? patient's blood pressure, pulse, and ? oxygen saturations were monitored ? continuously. The -[id number] was ? introduced through the anus and ? advanced to the terminal ileum. The ? colonoscopy was performed without ? difficulty. The patient tolerated the ? procedure well. The quality of the ? bowel preparation was evaluated using ? the BBPS ([place] Bowel Preparation ? Scale) with scores of: Right Colon = ? 3, Transverse Colon = 3 and Left ? Colon = 3 (entire mucosa seen well ? with no residual staining, small ? fragments of stool or opaque liquid). ? The total BBPS score equals 9. Findings: ? The terminal ileum appeared normal. ? A 3 mm polyp was found in the ascending colon. The ? polyp was sessile. The polyp was removed with a cold ? snare. Resection and retrieval were complete. ? Verification of patient identification for the ? specimen was done. Estimated blood loss was minimal. ? External hemorrhoids were found during retroflexion. ? The hemorrhoids were small. ? The exam was otherwise without abnormality. Moderate Sedation: ? Moderate (conscious) sedation was administered by the ? endoscopy nurse and supervised by the endoscopist. ? The following parameters were monitored: oxygen ? saturation, heart rate, blood pressure, and response ? to care. Total physician intraservice time was 24 ? minutes. Impression: ?- The examined portion of the ileum ? was normal. ? - One 3 mm polyp in the ascending ? colon, removed with a cold snare. ? Resected and retrieved. ? - External hemorrhoids. ? - The examination was otherwise ? normal. Recommendation: ?- Discharge patient to home (with ? escort). ? - High fiber diet. ? - Await pathology results. ? - Repeat colonoscopy date to be ? determined after pending pathology ? results are reviewed for surveillance. ? - Return to referring physician as ? previously scheduled. Procedure Code(s): ?? --- Professional --- ? 93979, Colonoscopy, flexible; with ? removal of tumor(s), polyp(s), or ? other lesion(s) by snare technique ? 99732, Moderate sedation; each ? additional 15 minutes intraservice ? time ? G0500, Moderate sedation services ? provided by the same physician or ? other qualified health care ? professional performing a ? gastrointestinal endoscopic service ? that sedation supports, requiring the ? presence of an independent trained ? observer to assist in the monitoring ? of the patient's level of ? consciousness and physiological ? status; initial 15 minutes of ? intra-service time; patient age 5 ? years or older (additional time may ? be reported with 52031, as ? appropriate) Diagnosis Code(s): ?? --- Professional --- ? K64.4, Residual hemorrhoidal skin tags ? 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 R10.31, Right lower quadrant pain ? K59.00, Constipation, unspecified CPT copyright 2018 [employer]. All rights reserved. The codes documented in this report are preliminary and upon marine painter review may be revised to meet current compliance requirements. Maicol Whittaker, 12/16/2019 3:38:51 PM Number of Addenda: 0 Note Initiated On: 12/16/2019 2:54 PM ? Endoscopy Report Procedure Note Maicol Whittaker MD - 12/16/2019 Patient Name: Shanae Spain Procedure Date: 12/16/2019 2:54 PM Date of : 1985 Admit Type: Outpatient Age: 34 Note Status: Finalized Attending MD: Maicol Whittaker , Procedure: Colonoscopy Indications: Abdominal pain in the right lower quadrant, Constipation Providers: Maicol Whittaker, Minda Matute RN Patient Profile: 34 year old woman with history of chronic consipation here for evaluation of intemittent hematochezia, abdominal pain and bloating. Referring MD: Piper Michael MD Medicines: Midazolam 2 mg IV, Fentanyl 100 micrograms IV, Diphenhydramine 50 mg IV Complications: No immediate complications. Procedure: Pre-Anesthesia Assessment: - The following statement was reviewed with the patient during pre-procedure scheduling, and was again reviewed with the patient by the endoscopist immediately prior to the procedure during the consent process, with an emphasis on the first sentence: With any procedure there is a small but inherent risk of acquiring infection including, but not limited to, the novel coronavirus (COVID-19). Please be aware that there is a potential for your procedure or surgery to be postponed, or possibly canceled, if you should test positive for COVID-19. There is also a potential for postponement of your procedure if there is a significant reduction in resources required to safely perform your procedure. After I obtained informed consent, the scope was passed under direct vision. Throughout the procedure, the patient's blood pressure, pulse, and oxygen saturations were monitored continuously. The [id number] was introduced through the anus and advanced to the terminal ileum. The colonoscopy was performed without difficulty. The patient tolerated the procedure well. The quality of the bowel preparation was evaluated using the BBPS ([place] Bowel Preparation Scale) with scores of: Right Colon = 3, Transverse Colon = 3 and Left Colon = 3 (entire mucosa seen well with no residual staining, small fragments of stool or opaque liquid). The total BBPS score equals 9. Findings: The terminal ileum appeared normal. A 3 mm polyp was found in the ascending colon. The polyp was sessile. The polyp was removed with a cold snare. Resection and retrieval were complete. Verification of patient identification for the specimen was done. Estimated blood loss was minimal. External hemorrhoids were found during retroflexion. The hemorrhoids were small. The exam was otherwise without abnormality. Moderate Sedation: Moderate (conscious) sedation was administered by the endoscopy nurse and supervised by the endoscopist. The following parameters were monitored: oxygen saturation, heart rate, blood pressure, and response to care. Total physician intraservice time was 24 minutes. Impression: - The examined portion of the ileum was normal. - One 3 mm polyp in the ascending colon, removed with a cold snare. Resected and retrieved. - External hemorrhoids. - The examination was otherwise normal. Recommendation: - Discharge patient to home (with escort). - High fiber diet. - Await pathology results. - Repeat colonoscopy date to be determined after pending pathology results are reviewed for surveillance. - Return to referring physician as previously scheduled. Procedure Code(s): --- Professional --- 19688, Colonoscopy, flexible; with removal of tumor(s), polyp(s), or other lesion(s) by snare technique 52594, Moderate sedation; each additional 15 minutes intraservice time G0500, Moderate sedation services provided by the same physician or other qualified health childcare center administrator performing a gastrointestinal endoscopic service that sedation supports, requiring the presence of an independent trained observer to assist in the monitoring of the patient's level of consciousness and physiological status; initial 15 minutes of intra-service time; patient age 5 years or older (additional time may be reported with 35449, as appropriate) Diagnosis Code(s): --- Professional --- K64.4, Residual hemorrhoidal skin tags D12.2, Benign neoplasm of ascending colon R10.31, Right lower quadrant pain K59.00, Constipation, unspecified CPT copyright 2018 [employer]. All rights reserved. The codes documented in this report are preliminary and upon marine painter review may be revised to meet current compliance requirements. Maicol Whittaker, 12/16/2019 3:38:51 PM Number of Addenda: 0 Note Initiated On: 12/16/2019 2:54 PM Endoscopy Report Piper Michael MD PN GI PROCEDURE ORDERABLES Performing Organization Address City/[facility]/ZIP Co de Phone Number [facility] ([facility]) [place], [place] * HIV 1/2 Ag/Ab 4th Generation (12/14/2019 9:57 AM CDT) HIV 1/2 Antigen/Antib martha (4th generation) Negative (Non Reactive) Negative (Non Reactive) 12/14/2019 1:26 PM CDT [facility] Comment:HIV-1 p24 Antigen an d HIV-1/HIV-2 Antibody not detected Blood Venipuncture / Unknown 12/14/2019 9:57 AM CDT 12/14/2019 10:10 AM CDT Piper Michael MD LAB_1 Performing Organization Address City/[facility] Co de Phone Number [facility] [address] * Pap Smear (04/13/2018 11:30 AM CDT) 04/13/2018 11:3 0 AM CDT Narrative PN SOFT - 04/29/2018 7:12 AM PORTRAIT STUDIO PHOTOGRAPHER FINAL GYNECOLOGICAL CYTOLOGY REPORT Pathology #: [id number] ?Date Obtained: 04/13/2018 ? Date Received: 04/14/2018 INTERPRETATION/RESULTS: Negative for Intraepithelial Lesion or Malignancy. SPECIMEN ADEQUACY: Satisfactory for Evaluation. ??Endocervical cells/transformation zone component present. Verified on 04/24/2018 ??by DELORES MARTIN(ASCP) (electronic signature) CLINICAL NOTES: ?Abnormal bleeding: No, LMP: 03/26/18, Menstrual status: None ?Apply, Current form of therapy: None apply LIQUID BASED PAP SMEAR SPECIMEN TYPE: ?ROUTINE CERVICAL PAP TEST PLEASE NOTE: The pap smear is a screening test designed to aid in the detection of cervical cancer and its precursor lesions. It is not a diagnostic procedure and should not be used as the sole means of detecting cervical cancer. Both false-positive and false-negative reports may occur. Performed at [facility], [address] [place] [address] Piper Michael MD LAB_1 PN SOFT [address] [place] [address] from Last 3 Months or Most Recently Relevant to Health Maintenance Care Teams Workforce Specialist Relationship Specialty [place] [address] [place] [address] PCP - General Family Practice 04/13/18
--- NOTE | 2023-10-01 08:00 | CT_ITS ---
Patient: BASILIO TAYLOR Facility:?[facility] Patient ID:?[id number] Site Patient ID:?[id number]. Site :?1985 Study:?CT-Sinus WITHOUT-10/01/2023 8:53:17 AM Ordering Physician:?DR. MORALES Final Report: Indication: Chronic sinusitis, pressure Technique: Noncontrast CT of the paranasal sinuses. Coronal and sagittal reformats. Bone and soft tissue algorithms. Comparison: CT sinus 08/05/2011 Findings: Frontal sinuses: The frontal sinuses and frontal recesses are clear. Ethmoid air cells: The ethmoid air cells are clear. Sphenoid sinuses: The sphenoid sinuses and sphenoethmoidal recesses are clear. Maxillary sinuses: The maxillary sinuses are clear. The osteomeatal units are clear, although the infundibula are mildly narrowed. Nasal cavity: The nasal septum is relatively midline. Paradoxical right middle turbinate. No large gina bullosa. Osseous structures: No suspicious osseous lesions. No periapical tooth lucencies. Mastoid air cells are clear. Orbits and intracranial structures are unremarkable for technique. IMPRESSION: 1. Clear sinonasal cavities. 2. Patent ostiomeatal units, with mild bilateral infundibular narrowing, stable. 3. Paradoxical right middle turbinate. Please note that all CT scans at this facility use dose modulation, iterative reconstruction, and/or weight-based dosing when appropriate to reduce radiation dose to as low as reasonably achievable. Dictated by Olesya Mercado MD @ 10/01/2023 11:09:57 AM Signed by:?Olesya Mercado MD @10/01/2023 11:09:57 AM (Electronic Signature)
== END 2023-10-01 07:41 | disposition home or self-care (01) ==
LOC: CT 07:41
PROVIDERS: PCP Physician Assistant Medical; Visit Provider Otolaryngology
DX: J32.9 Chronic sinusitis, unspecified (principal)
CPT/HCPCS: 70486

== ENCOUNTER 2023-11-27 14:51 | Outpatient (CLI) | payer OTHER, SELFPAY ==
--- OUTSIDE RECORDS SUMMARY | 2023-12-15 11:19 | XMS_ITS | Clinical Summary ---
[facility] Address [address] [place] [address] Care Team Providers Care Granite Sandblaster Apprentice Name Role Phone Piper Michael MD Primary Care Provider Source Comments You are receiving this document as you are listed as the primary care provider,follow-up provider, or the patient has been referred to you for consultation.This is in compliance with the Medicare andMedicaid EHR Incentive Program,which states Providers who transition their patient to another setting of careor provider of care or refers their patient to another provider of care shouldprovide summary care record for each transition of care or referral. [facility] [employer] Allergies Active Allergy Reactions Criticality Noted Date [...] onal and perennial allergic rhinoconjunctivitis Place [address] [place] into both nostrils two times a day. [...] 07/19/1999,02/28/1999,0 01/24/1999 Influenza IIV4 (Quadrivalent ) 0.5mL (29784) 05/03/2019,03/20/2016,03/29/2014 Influenza, Unspecified Formulation 05/27/2004 MMR 02/27/2011,01/18/1986 MPSV4 (Menomune) 03/02/2003 OPV, Trivalent (Orimune or tOPV) 990,09/15/1986,03/20/1985,1984,1984 Td (7+ yrs) 12/01/2018 Tdap 01/20/2008,11/18/2006 Typhoid (Typhim Vi, IM) 07/05/2019 Family History Medical History Relation Name Comments Adopted Mother Anxiety Mother Tremor Mother Coronary Artery Disease Paternal Grandfather [place] Cancer, Colon Paternal Grandmother Diabetes Paternal Grandmother [...] ACT 04/27/2021 04/27/2020, 05/03/2019 COVID-19 Vaccine (3 season) 2023 11/04/2020, 10/14/2020 Influenza (Season Ended) 2024 020, 05/03/2019, 03/23/2018, Additional history exists Colonoscopy 12/15/2024 12/16/2019 DTaP/Tdap/Td (9 - Tdap) 12/01/2028 12/02/19 19, 01/20/2008, 11/18/2006, Additional history exists Zoster/Shingles (1 [...] oxygen saturations were monitored ? continuously. The -[id number] was ? introduced through the anus and ? advanced to the terminal ileum. The ? colonoscopy was performed without ? difficulty. The patient tolerated the ? procedure well. The quality of the ? bowel preparation was evaluated using ? the BBPS ([place] Bowel Preparation ? Scale) with scores of: [...] Procedure Code(s): ?? --- Professional --- ? 45050, Colonoscopy, flexible; with ? removal of tumor(s), polyp(s), or ? other lesion(s) by snare technique ? 43916, Moderate sedation; each ? additional 15 minutes [...] (additional time may ? be reported with 74938, as ? appropriate) Diagnosis Code(s): ?? --- Professional --- ? K64.4, Residual hemorrhoidal skin tags ? 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 R10.31, Right lower quadrant pain ? K59.00, Constipation, unspecified CPT copyright 2018 [employer]. All rights reserved. The codes documented in this report are preliminary and upon class c truck driver review may be revised to meet current [...] and oxygen saturations were monitored continuously. The CF-IJ208-06 was introduced through the anus and advanced to the terminal ileum. The colonoscopy was performed without difficulty. The patient tolerated the procedure well. The quality of the bowel preparation was evaluated using the BBPS ([place] Bowel Preparation Scale) with scores of: Right [...] previously scheduled. Procedure Code(s): --- Professional --- 19137, Colonoscopy, flexible; with removal of tumor(s), polyp(s), or other lesion(s) by snare technique 63664, Moderate sedation; each additional 15 minutes intraservice time G0500, Moderate sedation services provided by the same physician or other qualified health med care manager performing a gastrointestinal endoscopic service that sedation supports, requiring the presence of an independent trained observer to assist in the monitoring of the patient's level of consciousness and physiological status; initial 15 minutes of intra-service time; patient age 5 years or older (additional time may be reported with 90735, as appropriate) Diagnosis Code(s): --- Professional --- K64.4, Residual hemorrhoidal skin tags D12.2, Benign neoplasm of ascending colon R10.31, Right lower quadrant pain K59.00, Constipation, unspecified CPT copyright 2018 [employer]. All rights reserved. The codes documented in this report are preliminary and upon class c truck driver review may be revised to meet current compliance requirements. Maicol Whittaker, 12/16/2019 3:38:51 PM Number of Addenda: 0 Note Initiated On: 12/16/2019 2:54 PM Endoscopy Report Piper Michael MD PN GI PROCEDURE ORDERABLES Performing Organization Address City/[facility]/ZIP Co de Phone Number GI ([facility]) [place], [place] * HIV 1/2 Ag/Ab 4th Generation (12/14/2019 9:57 AM CDT) HIV 1/2 Antigen/Antib martha (4th generation) Negative (Non Reactive) Negative (Non Reactive) 12/14/2019 1:26 PM CDT [facility] Comment:HIV-1 p24 Antigen an d HIV-1/HIV-2 Antibody not detected Blood Venipuncture / Unknown 12/14/2019 9:57 AM CDT 12/14/2019 10:10 AM CDT Piper Michael MD LAB_1 Performing Organization Address City/[facility]/ZIP Co de Phone Number [facility] [address] * Pap Smear (04/13/2018 11:30 AM CDT) 04/13/2018 11:3 0 AM CDT Narrative PN SOFT - 04/29/2018 7:12 AM TELEPHONE ANSWERING SERVICE OPERATOR FINAL GYNECOLOGICAL CYTOLOGY REPORT Pathology #: [id number] ?Date Obtained: 04/13/2018 ? Date Received: 04/14/2018 [...] and false-negative reports may occur. Performed at , [address] [place] [address] Piper Michael MD LAB_1 PN SOFT [address] [place] [address] from Last 3 Months or Most Recently Relevant to Health Maintenance Care Teams Granite Sandblaster Apprentice Relationship Specialty [place] [id number] [address] [place] [address] PCP - General Family Practice 04/13/18
--- OUTSIDE RECORDS SUMMARY | 2023-12-15 11:19 | XMS_ITS | Clinical Summary ---
Author Organization [employer] [facility] [facility] Address [place], [place] [address] Care Team Providers Care Insurance Claims Representative Name Role Phone Almaz Rose [facility] [...] both nostrils once daily. 1 Bottle 0 3 Active ondansetron (ZOFRAN ODT) 4 mg disintegrating tabletIndications:N ausea Take 4 mg by mouth every 8 hours if needed. 30 tablet 1 1 Active ALPRAZolam (XANAX) 0.5 mg tabletIndications:A nxiety Take 1 tab daily as needed for anxiety. 15 Tablet 2 Active traZODone (DESYREL) 50 mg tabletIndications:I nsomnia, idiopathic TAKE 1 TABLET BY MOUTH AT BEDTIME , MAY REPEAT ONCE 180 Tablet 3 3 Active escitalopram oxalate (LEXAPRO) 20 mg tabletIndications:A nxiety TAKE 1 TABLET BY MOUTH IN THE MORNING 90 Tablet 1 4 Active polyethylene glycol-electrolyte (GOLYTELY) 236-22.74-6.74 -5.86 gram suspensionIndicatio ns:Rectal bleeding Drink 2 liters the day before colonoscopy and 2 liters 6 hours before colonoscopy appointment 4000 mL 4 Active EPINEPHrine (EpiPen) 0.3 mg/0.3 mL auto-injectorIndica tions:Urticaria, idiopathic Inject 0.3 mg (1 Pen) intramuscular each time if needed for Allergic Reaction. 2 Each 3 4 Active cetirizine (ZyrTEC) 10 mg tablet Take 10 mg by mouth once daily. Active Azelastine 205.5 mcg (0.15 %) nasal spray Inhale 205.5 mcg into affected nostril(s) two times daily. Active estradioL (VAGIFEM) 10 mcg tab vaginal tabletIndications:D yspareunia in female Place 1 tablet vaginally daily for 1 weeks then one-two times a week 40 Tablet 4 Active ethinyl estradiol-norelgest rom (Xulane) 150-35 mcg/24 hr patchIndications:Ab normal uterine bleeding Apply 1 Patch on dry, clean, hairless skin once weekly. Do not apply your patch during week 4. Make sure you remove your old patch. This is your patch-free week. Your menstrual period should start during your patch-free week. Begin a new 4-week cycle by applying a new patch on the day after week 4 ends. Repeat the cycle of 3 weekly applications followed by a patch-free week 9 Patch 2 4 Active ethinyl estradiol-norelgest rom (Xulane) 150-35 mcg/24 hr patchIndications:Ab normal uterine bleeding Apply 1 Patch on dry, clean, hairless skin once weekly. Do not apply your patch during week 4. Make sure you remove your old patch. This is your patch-free week. Your menstrual period should start during your patch-free week. Begin a new 4-week cycle by applying a new patch on the day after week 4 ends. Repeat the cycle of 3 weekly applications followed by a patch-free week 9 Patch 4 4 11/18/19 24 Discontinu ed(*Availa bility/For mulary change/Cos t of medication ) estradioL (VAGIFEM) 10 mcg tab vaginal tabletIndications:D yspareunia in female Place 1 tablet vaginally daily for 1 weeks then one-two times a week 40 Tablet 1 4 11/18/19 24 Discontinu ed(*Availa bility/For mulary change/Cos t of medication ) Active Problems Problem Noted Date Diagnosed Date Pap smear for cervical cancer screening 04/30/20 Overview: 04/22/2023: NIL/HPV negative Plan: Pap and HPV in 5 years. Encounters Date Type Department Care Team Description 12/11/2023 Telephone [facility] [address] [place] [id number] Zhane Blanc NP Referral (HYSTEROSONOGRAM) 11/27/2023 Telephone [facility] [address] [place] [address] Zhane Blanc NP Medication Management (Directions Clarification on Estradiol ) 11/17/2023 Refill [facility] [address] [place] [phone] Zhane Blanc NP Refill Request (Estradiol Tablets, Xulane Dis) 11/03/2023 10:00 AM CDT Office Visit [facility] [address] [place] [address] Jac Reagan MD Procedure (colonoscopy) 11/03/2023 Travel 11/02/2023 Telephone [facility] [address] [place] [phone] Hussein Galvan MD 10/28/2023 Telephone [facility] [address] [place] [address] Jac Reagan MD Appointment Reminder (Colonoscopy 11/03/2023 arriving at 10:00 am) 10/22/2023 3:45 PM CDT Orders Only [facility] [address] [place] [address] Lab, [facility] 10/22/2023 Travel 10/14/2023 8:40 AM CDT Office Visit [facility] [address] [place] [phone] Zhane Blanc NP Menstrual Problem 10/13/2023 11:20 AM CDT Telemedicine [facility] [address] [place] [address] Hussein Galvan MD 10/13/2023 Travel 10/01/2023 Orders Only [facility] Scanner 1 scan: (1-Ord) [facility], [place] SINUS WO CON, 10/01/2023 from Last 3 Months Immunizations Name Administration Dates Next Due COVID-19 vaccine (Pfizer-Bio NTech 30mcg/0.3mL) 12YO+ BIVALENT PF, MDV 05/23/2022 COVID-19 vaccine (Pfizer-Bio NTech 30mcg/0.3mL) PF, MDV 05/20/2021,11/04/2020,10/14/2020 DTP 02/23/1990, 7,03/20/1985,01/17,1984 Hepatitis A (Adult) 05/03/2019 Hepatitis B (Peds) 07/19/1999,02/28/1999, 999 Human Papilloma Virus Vaccine 01/20/2008, 008,11/18/2006 Influenza Virus, Unspecified 05/27/2004 Influenza, IIV3 (Age 6-35 mos) 3,03/15/2012,04/07/2011,03/26 Influenza, IIV4 03/03/2022, 1,04/20/2020,05/03,03/20/2016,03/29/2014 Influenza, IIV4 (=>6mos) MDV 03/23/2018,04/09/20 17,04/12/2015 MMR [...] PHQ-2 Answer Date Recorded PHQ-2 TOTAL SCORE 1 10/14/2023 Social Connections Answer Date Recorded Frequency of [...] 2 2 Date Outcome GA Total Labor Labor/2nd/3rd Weight Sex Type Anes PTL Jany A1 A5 Name Clin 2010 Term Vag Living 2012 Term Vag Living Comments GDM with pregnancies Children doing well Last Filed Vital Signs Vital Sign Reading Time Taken Comments Blood Pressure 107/61 11/03/2023 11:23 AM CDT Pulse 57 11/03/2023 11:23 AM CDT Temperature 36.7 ??C (98.1 ??F) 05/23/2022 12:[address] Respiratory Rate 14 11/03/2023 11:23 AM CDT Oxygen Saturation 99% 11/03/2023 11:23 AM CDT Inhaled Oxygen Concentration - - Weight 92.1 kg (203 lb) 10/14/2023 8:49 AM CDT Height 166 cm (5' 5.35) 08/10/2023 8:19 AM [employer] Body Mass Index 33.42 08/10/2023 8:19 AM [employer] Plan of Treatment Health Maintenance Due Date Last Done Comments HIV for age 15-65 09/18/1999 Hepatitis C screening for age 18-79 2002 COVID-19 vaccine series ( season) 2023 05/23/2022, 05/20/2021, 11/04/2020, Additional history exists Influenza for age 9-49 02/21/2024 , 05/20/2021, 04/20/2020, Additional history exists BMI (ht and wt on same day) for age 18+ 08/10/2024 08/10/2023, 04/22/2023, 03/03/2022, Additional history exists Depression screening for age 12+ 10/13/2024 10/14/2023, 05/23/2022, 08/20/2020 Pap test for age 21-65 04/22/2028 , 04/22/2023, 04/13/2018 (Verified in Care Everywhere or Patient Record), Additional history exists Tetanus booster 12/01/2028 12/01/2018, 11/20, 01/20/2008, Additional history exists Tdap Completed 01/20/2008, 11/18/2006 Pneumococcal series for age 6-64 Aged Out No longer eligible based on patient's age to complete this topic Procedures Procedure Name Priority Date/Time Associated Diagnosis Comments COLONOSCOPY 11/03/2023 10:21 AM CDT COLONOSCOPY DIAGNOSTIC Routine 4 9:58 AM CDT Hematochezia WHITE OAK (T7) IGE Routine 10/22/2023 3: 17 PM CDT Allergic rhinitis, unspecified seasonality, unspecified trigger WALNUT TREE (T10) IGE Routine 10/22/2023 3:17 PM CDT Allergic rhinitis, unspecified seasonality, unspecified trigger CISCO GRASS (G6) IGE Routine 4 3:17 PM CDT Allergic rhinitis, unspecified seasonality, unspecified trigger PERENNIAL RYE GRASS IGE Routine 10/22/2023 3:17 PM CDT Allergic rhinitis, unspecified seasonality, unspecified trigger PENICILLIUM CHRYSOGENUM (M1) IGE Routine 10/22/2023 3:17 PM CDT Allergic rhinitis, unspecified seasonality, unspecified trigger MAPLE (BOX ELDER) (T1)IGE Routine 10/22/2023 3:17 PM CDT Allergic rhinitis, unspecified seasonality, unspecified trigger ELM (T8) IGE Routine 10/22/2023 3:17 PM CDT Allergic rhinitis, unspecified seasonality, unspecified trigger DOG DANDER (E5) IGE Routine 10/22/2023 3 :17 PM CDT Allergic rhinitis, unspecified seasonality, unspecified trigger D FARINAE (D2) IGE Routine 10/22/2023 3: 17 PM CDT Allergic rhinitis, unspecified seasonality, unspecified trigger D PTERONYSSINUS (D1) IGE Routine 10/22/2023 3:17 PM CDT Allergic rhinitis, unspecified seasonality, unspecified trigger COMMON RAGWEED (W1) IGE Routine 10/22/2023 3:17 PM CDT Allergic rhinitis, unspecified seasonality, unspecified trigger CLADOSPORIUM HERBARUM IGE Routine 10/22/2023 3:17 PM CDT Allergic rhinitis, unspecified seasonality, unspecified trigger CAT DANDER (E1) IGE Routine 10/22/2023 3 :17 PM CDT Allergic rhinitis, unspecified seasonality, unspecified trigger BIRCH (T3) IGE Routine 10/22/2023 3:17 PM CDT Allergic rhinitis, unspecified seasonality, unspecified trigger ASPERGILLUS FUMIGATUS IGE Routine 10/22/2023 3:17 PM CDT Allergic rhinitis, unspecified seasonality, unspecified trigger ALTERNARIA ALTERNATA (M6) IGE Routine 10/22/2023 3:17 PM CDT Allergic rhinitis, unspecified seasonality, unspecified trigger SCAN-CT INTERPRETATION 04/11/202 4 12:00 AM CDT HPV THIN PREP Routine 04/22/2023 9:57 AM CDT Screening for cervical cancer from Last 3 Months or Most Recently Relevant to Health Maintenance Results * COLONOSCOPY (11/03/2023 10:21 AM CDT) 11/03/2023 10:2 1 AM CDT Narrative Transcriptions Jac Reagan MD - 11/03/2023 11:03 AM CDT Patient Name: Shanae Spain Procedure Date: 11/03/2023 Gender: Female Date of : 1985 Admit Type: Outpatient Procedure: Colonoscopy Proceduralist: Jac Reagan MD , Keila Winn (Nurse), Marlena King (Nurse) Referring MD: Almaz Rose Indications/Pre-Op Diagnosis: Evaluation of unexplained GI bleeding presenting with Hematochezia, Lastcolonoscopy: date unknown (unable to locate lastcolonoscopy report) Medications: Fentanyl 200 micrograms IV, Midazolam 4 mgIV, The level of sedation administered wasmoderate Procedure Description: The patient had risks, benefits and alternatives explained to andgave informed consent. The patient had a stable cardiopulmonary status and judged an adequate candidate for conscious sedation. The PCF-H190L [id number] was passed through the anus and advanced to 2cm into the ileum. The colonoscopy was performed without difficulty. The patient tolerated the procedure well. The quality of the bowel preparation was good. The terminal ileum, ileocecal valve,appendiceal orifice, and rectum were photographed. Complications: No immediate complications. Estimated Blood Loss & Specimen: Estimated blood loss: none. Specimen collected - None Findings: The perianal and digital rectal examinations were normal. The terminal ileum appeared normal. The entire examined colon appeared normal on direct and retroflexion views. Impressions/Post-Op Diagnosis: - The examined portion of the ileum was normal. - The entire examined colon is normal on direct and retroflexionviews. - No specimens collected. Recommendation: - Patient has a contact number available for emergencies. The signsand symptoms of potential delayed complications were discussed with the patient. Return to normal activities tomorrow. Written discharge instructions were provided to the patient. - Resume previous diet. - Continue present medications. - Repeat colonoscopy in 10 years for screening purposes. - Use FiberCon 2 tablets PO daily for 1 month. Moderate Sedation: A time out was performed before the procedure. Moderate (conscious) sedation was administered by the endoscopy nurse and supervised bythe endoscopist. The following parameters were monitored: oxygensaturation, heart rate, blood pressure, EKG, CO2, respiratory rate, adequacy of pulmonary ventilation and reponse to care. Please refer to the patient's medical record flowsheets and nursing notes for moderate sedation details. Total physician intraservice time was 23 minutes. Jac Reagan MD 11/03/2023 11:03:27 AM This report has been signed electronically. Note Initiated On: 11/03/2023 10:21 AM Procedure Code(s): --- Professional --- 90124, Colonoscopy, flexible; diagnostic, including collection of specimen(s) bybrushing or washing, when performed (separateprocedure) Diagnosis Code(s): --- Professional --- K92.1, Melena (includes Hematochezia) CPT copyright 2022 [employer]. All rights reserved. The codes documented in this report are preliminary and upon vp training reviewmay be revised to meet current compliance requirements. Scope In: 10:34:48 AM Scope Withdrawal Time 0 hours 7 minutes 43 seconds Scope Out: 10:54:47 AM Jac Reagan MD PROCEDURE ORD * WALNUT TREE (T10) IGE (77550.83) (10/22/2023 3:17 PM CDT) WALNUT TREE (T10) IGE <0.10 <=0.35 kU/L 10/26/2023 1:54 PM CDT [facility] Blood BLOOD SPECIMEN / Unknown Venipuncture / Unknown 10/22/2023 3:17 PM CDT 10/22/2023 3:17 PM CDT Hussein Galvan MD SEND OUTS Performing Organization Address City/[facility]/ZIP Co de Phone Number [facility] [address] [place] [address], * COMMON RAGWEED (W1) IGE [[id number]] (10/22/2023 3:17 PM CDT) Common Ragweed (W1) IgE <0.10 <=0.35 kU/L 10/26/2023 1:54 PM CDT [facility] Blood BLOOD SPECIMEN / Unknown Venipuncture / Unknown 10/22/2023 3:17 PM CDT 10/22/2023 3:17 PM CDT Hussein Galvan MD SEND OUTS [facility] [address] [place] [address], [place] * PERENNIAL RYE GRASS IGE [[id number]] (10/22/2023 3:17 PM CDT) PERENNIAL RYE GRASS (G5) IGE <0.10 <=0.35 kU/L 10/26/2023 1:54 PM CDT [facility] Blood BLOOD SPECIMEN / Unknown Venipuncture / Unknown 10/22/2023 3:17 PM CDT 10/22/2023 3:17 PM CDT Hussein Galvan MD SEND OUTS Performing Organization Address [facility] Co de Phone Number [facility] [address] [address], [place] * ELM (T8) IGE [[id number]] (10/22/2023 3:17 PM CDT) Elm (T8) IgE <0.10 <=0.35 kU/L 10/26/2023 1:54 PM CDT [facility] Blood BLOOD SPECIMEN / Unknown Venipuncture / Unknown 10/22/2023 3:17 PM CDT 10/22/2023 3:17 PM CDT Hussein Galvan MD SEND OUTS Performing Organization Address [facility] Co de Phone Number [facility] [address] [place] [address], [place] * MAPLE (BOX ELDER) (T1)IGE [[id number]] (10/22/2023 3:17 PM CDT) MAPLE (BOX ELDER) (T1) IGE <0.10 <=0.35 kU/L 10/26/2023 1:54 PM CDT [facility] Blood BLOOD SPECIMEN / Unknown Venipuncture / Unknown 10/22/2023 3:17 PM CDT 10/22/2023 3:17 PM CDT Hussein Galvan MD SEND OUTS Performing Organization Address [facility] Co de Phone Number [facility] [address] [place] [address], [place] * BIRCH (T3) IGE [[id number]] (10/22/2023 3:17 PM CDT) Birch (T3) IgE <0.10 <=0.35 kU/L 10/26/2023 1:54 PM CDT [facility] Blood BLOOD SPECIMEN / Unknown Venipuncture / Unknown 10/22/2023 3:17 PM CDT 10/22/2023 3:17 PM CDT Hussein Galvan MD SEND OUTS Performing Organization Address [facility]/ZIP Co de Phone Number [facility] [address] [address], [place] * PENICILLIUM CHRYSOGENUM (M1) IGE [[id number]] (10/22/2023 3:17 PM CDT) PENICILLIUM CHRYSOGENUM(M1)I GE <0.10 <=0.35 kU/L 10/26/2023 1:54 PM CDT [facility] Blood BLOOD SPECIMEN / Unknown Venipuncture / Unknown 10/22/2023 3:17 PM CDT 10/22/2023 3:17 PM CDT Hussein Galvan MD SEND OUTS Performing Organization Address [facility] Co de Phone Number [facility] [address] [address], [place] * D PTERONYSSINUS (D1) IGE [[id number]] (10/22/2023 3:17 PM CDT) D. Pteronyssinus (D1) IgE <0.10 <=0.35 kU/L 10/26/2023 1:54 PM CDT [facility] Blood BLOOD SPECIMEN / Unknown Venipuncture / Unknown 10/22/2023 3:17 PM CDT 10/22/2023 3:17 PM CDT Hussein Galvan MD SEND OUTS Performing Organization Address City/[facility]/ZIP Co de Phone Number [facility] [address] [place] [address], [place] * ASPERGILLUS FUMIGATUS IGE [[id number]] (10/22/2023 3:17 PM CDT) Aspergillus Fumigatus (M3) IGE <0.10 <=0.35 kU/L 10/26/2023 1:54 PM CDT [facility] Blood BLOOD SPECIMEN / Unknown Venipuncture / Unknown 10/22/2023 3:17 PM CDT 10/22/2023 3:17 PM CDT Hussein Galvan MD SEND OUTS Performing Organization Address City/[facility]/ZIP Co de Phone Number [facility] [address] [address], [place] * CISCO GRASS (G6) IGE [[id number]] (10/22/2023 3:17 PM CDT) CISCO GRASS (G6) IGE <0.10 <=0.35 kU/L 10/26/2023 1:54 PM CDT [facility] Blood BLOOD SPECIMEN / Unknown Venipuncture / Unknown 10/22/2023 3:17 PM CDT 10/22/2023 3:17 PM CDT Hussein Galvan MD SEND OUTS Performing Organization Address [facility] Co de Phone Number [facility] [address] [address], [place] * CLADOSPORIUM HERBARUM IGE [[id number]] (10/22/2023 3:17 PM CDT) Cladosporium herbarum (M2) IgE <0.10 <=0.35 kU/L 10/26/2023 1:54 PM CDT [facility] Blood BLOOD SPECIMEN / Unknown Venipuncture / Unknown 10/22/2023 3:17 PM CDT 10/22/2023 3:17 PM CDT Hussein Galvan MD SEND OUTS Performing Organization Address City/[facility]/ZIP Co de Phone Number [facility] [address] [address], [place] * WH[place]AK (T7) IGE [[id number]] (10/22/2023 3:17 PM CDT) [place] (T7) IGE <0.10 <=0.35 kU/L 10/26/2023 1:54 PM CDT [facility] Blood BLOOD SPECIMEN / Unknown Venipuncture / Unknown 10/22/2023 3:17 PM CDT 10/22/2023 3:17 PM CDT Hussein Galvan MD SEND OUTS Performing Organization Address City/[facility]/ZIP Co de Phone Number [facility] [address] [place] [address], [place] * DOG DANDER (E5) IGE [[id number]] (10/22/2023 3:17 PM CDT) Dog Dander (E5) IgE <0.10 <=0.35 kU/L 10/26/2023 1:54 PM CDT [facility] Blood BLOOD SPECIMEN / Unknown Venipuncture / Unknown 10/22/2023 3:17 PM CDT 10/22/2023 3:17 PM CDT Hussein Galvan MD SEND OUTS Performing Organization Address [facility] Co de Phone Number [facility] [address] [place] [address], [place] * ALTERNARIA ALTERNATA (M6) IGE [20725.2] (10/22/2023 3:17 PM CDT) Alternaria Alternata IGE <0.10 <=0.35 kU/L 10/26/2023 1:54 PM CDT [facility] Blood BLOOD SPECIMEN / Unknown Venipuncture / Unknown 10/22/2023 3:17 PM CDT 10/22/2023 3:17 PM CDT Hussein Galvan MD SEND OUTS Performing Organization Address City/[facility]/ZIP Co de Phone Number [facility] [address] [place] [address], [place] * D FARINAE (D2) IGE [[id number]] (10/22/2023 3:17 PM CDT) D. Farinae (D2) IgE <0.10 <=0.35 kU/L 10/26/2023 1:54 PM CDT [facility] Blood BLOOD SPECIMEN / Unknown Venipuncture / Unknown 10/22/2023 3:17 PM CDT 10/22/2023 3:17 PM CDT Hussein Galvan MD SEND OUTS Performing Organization Address City/[facility]/ZIP Co de Phone Number [facility] [address] * CAT DANDER (E1) IGE [[id number]] (10/22/2023 3:17 PM CDT) Cat Dander (E1) IgE <0.10 <=0.35 kU/L 10/26/2023 1:54 PM CDT [facility] Blood BLOOD SPECIMEN / Unknown Venipuncture / Unknown 10/22/2023 3:17 PM CDT 10/22/2023 3:17 PM CDT Hussein Galvan MD SEND OUTS Performing Organization Address [facility] Co de Phone Number [facility] [address] * SCAN-CT INTERPRETATION (10/01/2023 12:00 AM CDT) Anatomical Region Laterality Modality Other Scanner OTHER * HPV HIGH RISK (04/22/2023 9:57 AM CDT) TYPE 16 Negative Negative 04/24/2023 1:47 PM CDT [facility] TYPE 18 Negative Negative 04/24/2023 1:47 PM CDT [facility] OTHER HIGH RISK TYPES Negative Negative 04/24/2023 1:47 PM CDT [facility] Other (Cervical) Non-Blood / Unknown 04/22/2023 9:57 AM CDT 04/22/2023 4:53 PM CDT Narrative [facility] - 04/24/2023 1:47 PM CDT HPV types 16, 18, 31, 33, 35, 39, 45, 51, 52, 56, 58, 59, 66 and 68 DNA were undetectable or below the pre-set threshold. Methodology: Yariel John 4800 HPV Test Almaz RILEY MICROBIOLOGY [facility] [address] [place] [address], from Last 3 Months or Most Recently Relevant to Health Maintenance Care Teams Insurance Claims Representative Relationship Specialty Start Date End Date Almaz Rose PA [address] [place] [address] PCP - General Physician Podiatric Foot And Ankle Specialist 10/22/20
== END 2023-11-27 14:52 | disposition home or self-care (01) ==
LOC: NFLDREF 12-15 11:17
PROVIDERS: PCP Physician Assistant Medical; Referring Provider Physician Assistant Medical; Visit Provider Nurse Practitioner Family
DX: R30.0 Dysuria (principal); N30.01 Acute cystitis with hematuria
CPT/HCPCS: 87086; 87186

== ENCOUNTER 2024-02-05 10:00 | Day surgery (SDC) | payer OTHER, SELFPAY ==
[2024-02-05] VITALS (12 sets, daily range): BP systolic 115–151; BP diastolic 72–97; PULSE 66–92; RESP 13–20; TEMP 36.2–36.6; O2SAT 94–100; BMI 34.1
--- OUTSIDE RECORDS SUMMARY | 2024-02-05 10:03 | XMS_ITS | Clinical Summary ---
Author Organization [facility] Address [place], [place] [address] Care Team Providers Care Airplane Cover Maker Name Role Phone Almaz Rose Primary Care [...] both nostrils once daily. 1 Bottle 0 04/18/20 13 Active ondansetron (ZOFRAN ODT) 4 mg disintegrating tabletIndications: Nausea Take 4 mg by mouth every 8 hours if needed. 30 tablet 1 08/21/19 21 Active ALPRAZolam (XANAX) 0.5 mg tabletIndications: Anxiety Take 1 tab daily as needed for anxiety. 15 Tablet 02/04/20 22 Active traZODone (DESYREL) 50 mg tabletIndications: Insomnia, idiopathic TAKE 1 TABLET BY MOUTH AT BEDTIME , MAY REPEAT ONCE 180 Tablet 3 05/15/20 23 Active EPINEPHrine (EpiPen) 0.3 mg/0.3 mL auto-injectorIndic ations:Urticaria, idiopathic Inject 0.3 mg (1 Pen) intramuscular each time if needed for Allergic Reaction. 2 Each 3 10/13/19 24 Active cetirizine (ZyrTEC) 10 mg tablet Take 10 mg by mouth once daily. Active Azelastine 205.5 mcg (0.15 %) nasal spray Inhale 205.5 mcg into affected nostril(s) two times daily. Active escitalopram oxalate (LEXAPRO) 20 mg tabletIndications: Anxiety TAKE 1 TABLET BY MOUTH IN THE MORNING 90 Tablet 1 12/19/19 24 Active ethinyl estradiol-norelges trom (ORTHO EVRA) 150-35 mcg/24 hr patchIndications:E ncounter for surveillance of transdermal patch hormonal contraceptive device Apply 1 Patch on dry, clean, hairless skin once weekly. Ortho Evra 9 Patch 3 01/14/20 24 Active estradioL (VAGIFEM) 10 mcg tab vaginal tabletIndications: Dyspareunia in female PLACE 1 INSERT VAGINALLY DAILY FOR 1 WEEK, THEN PLACE 1 INSERT VAGINALLY TWICE WEEKLY THEREAFTER DIRECTED 24 Tablet 4 02/01/20 24 Active rosuvastatin (CRESTOR) 10 mg tabletIndications: Hyperlipidemia, unspecified hyperlipidemia type Take 1 Tablet (10 mg) by mouth at bedtime. 90 Tablet 3 01/27/20 24 Active polyethylene glycol-electrolyte (GOLYTELY) 236-22.74-6.74 -5.86 gram suspensionIndicati ons:Rectal bleeding Drink 2 liters the day before colonoscopy and 2 liters 6 hours before colonoscopy appointment 4000 mL 09/07/19 24 024 Discontinued(*P atient states no longer taking) estradioL (VAGIFEM) 10 mcg tab vaginal tabletIndications: Dyspareunia in female Place 1 tablet vaginally daily for 1 weeks then one-two times a week 40 Tablet 11/18/19 24 024 Discontinued ethinyl estradiol-norelges trom (ORTHO EVRA) 150-35 mcg/24 hr patchIndications:E ncounter for surveillance of transdermal patch hormonal contraceptive device Apply 1 Patch on dry, clean, hairless skin once weekly. Ortho Evra 9 Patch 3 01/06/20 24 024 Discontinued(Re order (E-cancel not sent)) ethinyl estradiol-norelges trom (ORTHO EVRA) 150-35 mcg/24 hr patchIndications:E ncounter for surveillance of transdermal patch hormonal contraceptive device Apply 1 Patch on dry, clean, hairless skin once weekly. Ortho Evra 9 Patch 3 01/07/20 24 024 Discontinued(Ot her - add note to specify (E-cancel not sent)) Active Problems Problem Noted Date Diagnosed Date Exercise-induced bronchospasm 01/27/2024 Pap smear for cervical cancer screening 04/30/20 23 Overview: 04/22/2023: NIL/HPV negative Plan: Pap and HPV in 5 years. Encounters Date Type Department Care Team Description 02/01/2024 1:30 PM CDT Ancillary Procedure [facility] [address] [address] Anay Gracia, 02/01/2024 Travel 01/30/2024 Travel 01/27/2024 8:50 AM CDT Preop Visit [facility] [address] [place] [address] Almaz Rose PA Preoperative Exam (sinus) 01/27/2024 Travel 01/26/[address] [address] Zhane Blanc NP Refill Request (Estradiol) 01/07/2024 Refill [facility] [address] [place] [address] Zhane Blanc NP Refill Request (Ortho Evra Patch 150-35 MCG/24 HR) 01/01/2024 Orders Only [facility] [address] [place] [address] Zahne Blanc, HANNA <No scans attached> 01/01/2024 Orders Only [facility] [address] [place] [address] Zhane Blanc NP <No scans attached> 12/17/[address] [facility] [address] [place] [address] Almaz Rose PA Refill Request (Escitalopram Oxalate) 12/11/2023 Telephone [facility] [address] [address] Zhane Blanc NP Referral (HYSTEROSONOGRAM) 11/27/2023 Telephone [facility] [address] [address] Zhane Blanc NP Medication Management (Directions Clarification on Estradiol ) 11/17/2023 Refill [facility] [address] [address] Zhane Blanc NP Refill Request (Estradiol Tablets, Xulane Dis) from Last 3 Months Immunizations Name Administration Dates Next Due COVID-19 vaccine ([employer] 30mcg/0.3mL) 12YO+ BIVALENT PF, MDV 05/23/2022 COVID-19 vaccine ([employer] 30mcg/0.3mL) PF, MDV 05/20/2021,11/04/2020,10/14/2020 DTP 02/23/1990, [...] Anes PTL Jany A1 A5 Name Clin 2011 Term Vag Living 2013 Term Vag Living Comments GDM with pregnancies Children doing well Last Filed Vital Signs Vital Sign Reading Time Taken Comments Blood Pressure 113/76 01/27/2024 8:51 AM CDT Pulse 67 01/27/2024 8:51 AM CDT Temperature 36.7 ??C (98.1 ??F) 05/23/2022 12:[address] Respiratory Rate 14 11/03/2023 11:23 AM CDT Oxygen Saturation 99% 01/27/2024 8:51 AM CDT Inhaled Oxygen Concentration - - Weight 93 kg (205 lb) 01/27/2024 8:51 AM CDT Height 166 cm (5' 5.35) 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 Body Mass Index 33.75 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 Plan of Treatment Health Maintenance Due Date Last Done Comments HIV for age 15-65 09/18/1999 Hepatitis C screening for age 18-79 2002 COVID-19 vaccine series (2022-24 season) 2023 05/23/2022, 05/20/2021, 11/04/2020, Additional history [...] Procedure Name Priority Date/Time Associated Diagnosis Comments US HYSTEROSONOGRAM Routine 02/01/2024 2: 23 PM CDT Abnormal uterine bleeding (AUB) HPV THIN PREP Routine 04/22/2023 9:57 AM CDT Screening for cervical cancer from Last 3 Months or Most Recently Relevant to Health Maintenance Results * US HYSTEROSONOGRAM (02/01/2024 2:23 PM CDT) Anatomical Region Laterality Modality UTERUS Ultrasound Impressions 02/02/2024 5:21 PM CDT 1. The hysterosonogram is normal. Maya Zambrano MD 02/02/2024 5:18 PM [facility] [address] [facility] [address] [place] [address] Narrative 02/02/2024 5:21 PM CDT Table formatting from the original result was not included. For Patients: Results are automatically released to your [employer] account once available, in compliance with federal regulations. This means that you may see your results before your provider has had a chance to review them. Please allow 2-3 business days for your provider to comment on the results. Hysterosonogram Date of Exam: 02/01/2024 Indication for exam: 1. Abnormal uterine bleeding (AUB) ?? Requesting Provider: Zhane Blanc NP TECHNIQUE: Transabdominal scan was not performed. Transvaginal scan was performed for improved visualization of the pelvic structures. FINDINGS: The uterus is anteverted, without deviation, and measures 8.7 x 5.5 x 4.8 cm. The myometrium is homogeneous. There is no evidence of intrauterine masses. The anterior endometrial thickness is 3 mm, and the posterior endometrial thickness is 4 mm. The total endometrial thickness is 7 mm. There are no myomas noted. The right ovary is not identified. The left ovary is not identified. Free fluid in the cul de sac: None HYSTEROSONOGRAM: The procedure was performed by Anay Gracia. ??See her procedure note. ?? The endometrial canal was hydrodilated and the lining was noted to be smooth with no evidence of polyps or submucosal fibroids. The endometrial lining measured 3 mm anteriorly, 4 mm posteriorly, with the total being 7 mm. Zhane Blanc NP US * HPV HIGH RISK (04/22/2023 9:57 AM CDT) TYPE 16 Negative Negative 04/24/2023 1:47 PM CDT [facility] TYPE 18 Negative Negative 04/24/2023 1:47 PM CDT [facility] OTHER HIGH RISK TYPES Negative Negative 04/24/2023 1:47 PM CDT [facility] Other (Cervical) Non-Blood / Unknown 04/22/2023 9:57 AM CDT 04/22/2023 4:53 PM CDT Narrative [facility] - 04/24/2023 1:47 PM CDT HPV types 16, 18, 31, 33, 35, 39, 45, 51, 52, 56, 58, 59, 66 and 68 DNA were undetectable or below the pre-set threshold. Methodology: Yariel John 4800 HPV Test Almaz RILEY MICROBIOLOGY [facility] [address] [place] [address], from Last 3 Months or Most Recently Relevant to Health Maintenance Care Teams Airplane Cover Maker Relationship Specialty Start Date End Date Almaz Rose PA [address] [place] [address] PCP - General Physician Block Piler 10/22/20
--- OUTSIDE RECORDS SUMMARY | 2024-02-05 10:03 | XMS_ITS | Clinical Summary ---
Author Organization [facility] Address [address] [place] [address] Care Team Providers Care Geriatric Assistant Name Role Phone Piper Michael MD Primary [...] for each transition of care or referral. [facility] Allergies Active Allergy Reactions Criticality Noted Date [...] onal and perennial allergic rhinoconjunctivitis Place 1 Era into both nostrils two times a day. [...] Date Diagnosed Date Adenoma of colon 12/28/2019 Overview (12/28/2019): Colonoscopy completed 11/2019, repeat in 5 years For tubular adenoma surveillance Chronic constipation 12/18/2019 Overview (12/18/2019): Normal CT abd/pelvis, colonoscopy, celiac panel, TSH, Ca. Non-seasonal allergic rhinitis 12/01/2018 Exercise-induced bronchospasm 12/01/2018 Lactose intolerance 12/01/2018 PMDD (premenstrual dysphoric disorder) 8 Anxiety 04/13/2018 Chronic low back pain 04/13/2018 Overview (04/13/2018): Herniated L4-L5. Sees chiropractor. Menometrorrhagia 04/13/2018 Immunizations Name Administration Dates Next Due 4vHPV (Gardasil) 01/20/2008,11/02/2007, 7 Chicken Pox - History of Illness 1989 DTP 02/23/1990, 7,03/20/1985,1984,1984 Flu Vac Preserv Free (3+yrs) 05/05/2013, 03/15/2012,04/07/2011,2009 Fluzone Qiv Multidose Vial 0 .25 (6-35 Mos) 03/23/2018,04/09/2017,04/12/2015 HepA Adult (19+ yrs) 05/03/2019 HepB Ped/Adol (0-18 yrs) 07/19/1999,02/28/1999,0 01/24/1999 Influenza IIV4 (Quadrivalent ) 0.5mL (74140) 05/03/2019,03/20/2016,03/29/2014 Influenza, Unspecified Formulation 05/27/2004 MMR 02/27/2011,01/18/1986 MPSV4 (Menomune) 03/02/2003 OPV, Trivalent (Orimune or tOPV) 990,09/15/1986,03/20/1985,1984,1984 Td (7+ yrs) 12/01/2018 Tdap 01/20/2008,11/18/2006 Typhoid (Typhim Vi, IM) 07/05/2019 Family History Medical History Relation Name Comments Adopted Mother Anxiety Mother Tremor Mother Coronary Artery Disease Paternal Grandfather CT Cancer, Colon Paternal Grandmother Diabetes Paternal Grandmother [...] Asthma ACT 04/27/2021 04/27/2020, 05/03/2019 COVID-19 Vaccine ( season) 2023 11/04/2020, 10/14/2020 Influenza (#1) 2024 04/20/2020, 04/22, 03/23/2018, Additional history exists Colonoscopy [...] quadrant, Constipation Providers: ? Maicol Whittaker, Minda Matute, JACOBY Patient Profile: ? 34 year old woman [...] oxygen saturations were monitored ? continuously. The -[id number] was ? introduced through the anus and ? advanced to the terminal ileum. The ? colonoscopy was performed without ? difficulty. The patient tolerated the ? procedure well. The quality of the ? bowel preparation was evaluated using ? the BBPS ([place] Bowel Preparation ? Scale) with scores of: [...] Procedure Code(s): ?? --- Professional --- ? 38731, Colonoscopy, flexible; with ? removal of tumor(s), polyp(s), or ? other lesion(s) by snare technique ? 28952, Moderate sedation; each ? additional 15 minutes [...] (additional time may ? be reported with 03203, as ? appropriate) Diagnosis Code(s): ?? --- Professional --- ? K64.4, Residual hemorrhoidal skin tags ? 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 R10.31, Right lower quadrant pain ? K59.00, Constipation, unspecified CPT copyright 2018 [employer]. All rights reserved. The codes documented in this report are preliminary and upon acoustic warfare analyst review may be revised to meet current [...] in the right lower quadrant, Constipation Providers: Minda Elizabeth RN Patient Profile: 34 year old woman [...] and oxygen saturations were monitored continuously. The CF-[id number] was introduced through the anus and advanced to the terminal ileum. The colonoscopy was performed without difficulty. The patient tolerated the procedure well. The quality of the bowel preparation was evaluated using the BBPS ([place] Bowel Preparation Scale) with scores of: Right [...] previously scheduled. Procedure Code(s): --- Professional --- 06812, Colonoscopy, flexible; with removal of tumor(s), polyp(s), or other lesion(s) by snare technique 68095, Moderate sedation; each additional 15 minutes intraservice time G0500, Moderate sedation services provided by the same physician or other qualified health medical care evaluation specialist performing a gastrointestinal endoscopic service that sedation supports, requiring the presence of an independent trained observer to assist in the monitoring of the patient's level of consciousness and physiological status; initial 15 minutes of intra-service time; patient age 5 years or older (additional time may be reported with 80259, as appropriate) Diagnosis Code(s): --- Professional --- K64.4, Residual hemorrhoidal skin tags D12.2, Benign neoplasm of ascending colon R10.31, Right lower quadrant pain K59.00, Constipation, unspecified CPT copyright 2018 [employer]. All rights reserved. The codes documented in this report are preliminary and upon acoustic warfare analyst review may be revised to meet current compliance requirements. Maicol Pattersonn, 12/16/2019 3:38:51 PM Number of Addenda: 0 Note Initiated On: 12/16/2019 2:54 PM Endoscopy Report Piper Michael MD PN GI PROCEDURE ORDERABLES Performing Organization Address City/[facility]/ZIP Co de Phone Number GI (PROVATION) [place], [place] * HIV 1/2 Ag/Ab 4th Generation (12/14/2019 9:57 AM CDT) HIV 1/2 Antigen/Antib martha (4th generation) Negative (Non Reactive) Negative (Non Reactive) 12/14/2019 1:26 PM CDT [facility] Comment:HIV-1 p24 Antigen an d HIV-1/HIV-2 Antibody not detected Blood Venipuncture / Unknown 12/14/2019 9:57 AM CDT 12/14/2019 10:10 AM CDT Piper Michael MD LAB_1 [facility] [address] * Pap Smear (04/13/2018 11:30 AM CDT) 04/13/2018 11:3 0 AM CDT Narrative PN SOFT - 04/29/2018 7:12 AM SENIOR COMMERCIAL LOAN OFFICER FINAL GYNECOLOGICAL CYTOLOGY REPORT Pathology #: [id number] ?Date Obtained: 04/13/2018 ? Date Received: 04/14/2018 [...] and false-negative reports may occur. Performed at [facility], [address] [place] [address] Piper Michael MD LAB_1 [facility] [address] [place] [address] from Last 3 Months or Most Recently Relevant to Health Maintenance Care Teams Geriatric Assistant Relationship Specialty [place] [address] [place] [address] PCP - General Family Practice 04/13/18
--- OUTSIDE RECORDS SUMMARY | 2024-02-05 10:03 | XMS_ITS | Data Portability ---
Author Organization [place] [facility] Address [address] [facility] [address] [place] [address] Care Team Providers Care Main Line Assembler Name Role Phone MAGNUS LYLE Primary Care Provider Assessment No assessment recorded. Plan of Treatment Reminders Order Date Submit Date Provider Last Modified By Organization Details Last Modified Time Details Appointments None recorded. Lab urinalysi s, dipstick 2022 023 [facility], [address], [place], [address], 3 10:55:24 urinalysi s, dipstick 2022 023 [facility], [address], [place], [address], 3 12:35:57 Referral pelvic floor therapy referral - Please contact patient to schedule 2022 023 [facility], [address] [place], [address], 3 10:47:53 Procedures None recorded. Surgeries None recorded. Imaging None recorded. Medication Orders Flomax 0.4 mg capsule 2022 023 [id number], [address] [place], [place], [phone], 3 12:34:45 oxybutyni n chloride ER 10 mg tablet,ex tended release 24 hr 2022 023 [id number], [address] [place], [place], [phone], 11:01:32 Patient TargetsNo targets recorded. Patient InstructionsNo instructions recorded. Reason for Referral Pelvic Floor Therapy Referra l for Overactive urinary bladder Please contact patient to schedule Referring Physician: Grady Hart, Urology, Encounter Date: 11/24/2022 Results Created Date Observation Date Name Description Value Unit Range Abnormal Flag LastModifiedBy Organization Detail LastModifiedTime 10/14/1910/13/2022 urina lysis , dipst ick pH-Status 6.5 Not Available [facility] [address], [place], [address], 10/13/2022 10:18:23 11/25/19 23 11/24/2022 urina lysis , dipst ick Color-Status Yellow Not Available [facility] [address], [place], [address], 11/24/2022 12:35:04 11/25/19 23 11/24/2022 urina lysis , dipst ick Clarity-Stat us Clear Not Available [facility] [address], [place], [address], 11/24/2022 12:35:04 11/25/19 23 11/24/2022 urina lysis , dipst ick Glucose-Stat us Negati ve Not Available [facility] [address], [place], [address], 11/24/2022 12:35:04 11/25/19 23 11/24/2022 urina lysis , dipst ick Bilirubin-St atus Negati ve Not Available [facility] [address], [place], [address], 11/24/2022 12:35:04 11/25/19 23 11/24/2022 urina lysis , dipst ick Ketones-Stat us Negati ve Not Available [facility] [address], [place], [address], 11/24/2022 12:35:04 11/25/19 23 11/24/2022 urina lysis , dipst ick Sp Taylor-Stat us 1.010 Not Available [facility] [address], [place], [address], 11/24/2022 12:35:04 11/25/19 23 11/24/2022 urina lysis , dipst ick pH-Status 7.5 Not Available [facility] [address], [place], [address], 11/24/2022 12:35:04 11/25/19 23 11/24/2022 urina lysis , dipst ick Urobilinogen -Status 0.2 Not Available [facility] [address], [place], [address], 11/24/2022 12:35:04 11/25/19 23 11/24/2022 urina lysis , dipst ick Nitrates-Sta tus negati ve Not Available [facility] [address], [place], [address], 11/24/2022 12:35:04 11/25/19 23 11/24/2022 urina lysis , dipst ick Blood-Status Negati ve Not Available [facility] [address], [place], [address], 11/24/2022 12:35:04 11/25/19 23 11/24/2022 urina lysis , dipst ick Leuko-Status Negati ve Not Available [facility] [address], [place], [address], 11/24/2022 12:35:04 11/25/19 23 11/24/2022 urina lysis , dipst ick Specimen Type Voided Not Available [facility] [address], [place], [address], 11/24/2022 12:35:04 10/11/19 23 02/10/2022 CT, abdom en + pelvi s, w/ contr ast No observ ation record ed. [email or web address] Not Available 10/13/2022 10:57:17 Result Notes None recorded. Procedures Surgical History Date Name Laterality Status Provider Name and Address Organization Details Recorded Time 3 Bladder Scan completed GRADY HART PA-C [address] [place] [address],[address], [place], [address], [facility] 11/24/2022 12:35:01 3 [facility] 10/13/2022 10:18:19 Imaging Results Imaging Date Name Status LastModified by Organiz ation Details LastModified Time 02/10/2022 CT, abdomen + pelvis, w/ contrast completed Information not available 10/13/2022 10:57:17 Procedure Notes None recorded. Medical Equipment None Reported. Allergies Allergen ID Allergen Name Allergen Category Reaction Reaction Severity Criticality Documentation Date Start Date Code Code System Note Provider Name and Address Organization Details Recorded Time 002638 Substance with sulfonami de structure and antibacte rial mechanism of action (substanc e) medicatio n Not available Not available Not available 10/13/2022 10001 8003 SNOMED Telma Gneiting deidre, [facility] 10:21:39 830690 oxycodone medicatio n Not available Not available Not available 10/13/[address] [facility], [facility] 10:23:51 258950 methylpre dnisolone medicatio n Not available Not available Not available 10/13/2022 6902 RxNorm Telma Gneiting de[place]re, [facility] 10:24:06 Medications Name Sig Start Date Stop [...] Updated DateTime 10/13/2022 165.1 cm 33.3 kg/m2 01312.47 cata Telma Boss [facility] 10/13/2022 10:20:55 Date Recorded Body height Body mass index (BMI) Body weight Provider Name and Address Organization Details Last Updated DateTime 11/24/2022 165.1 cm 33.3 kg/m2 38592.47 cata GRADY HART PA-C [address] [facility] [address], [place], [address], [facility] 11/24/2022 12:20:17 Social History Question Answer Notes LastModified by Organizat ion Details LastModified Time Tobacco Smoking Status Never Smoker Telma Armandozoe deidre [facility] 10/13/2022 10:22:48 What Was The Date Of Your Most Recent Tobacco Screening? 11/24/2022 Information not available 11/24/2022 Sex: Unknown Functional Status None recorded. Mental Status None recorded. Family History Nothing Reported. Medical History Condition Response Diabetes N Sexually Transmitted Infection N Bleeding Disorder N Other N High Blood Pressure N Kidney Stones [...] Encounter Closed Date Diagnosis/Indication Diagnosis SNOMED-CT Code [id number] [facility] [address] [place] [address] 10/13/2022 09:57:49 10/17/2022 14:53:39 Dysuria 29630566 Overactive urinary bladder 691428233 Cystocele 629556579 Incomplete emptying of urinary bladder 577209356 [id number] GRADY HART PA-C [facility] [address] [place] [address] 11/24/2022 12:14:02 12/01/2022 08:31:32 Overactive urinary bladder 785542028 Health Concerns Section Related Observation LastModified by Organization Detkelin ls LastModified Time None Recorded Concern Status LastModified by Organization Details LastModified Time None Recorded Advance Directives Directive None Recorded Payers Encounter Date Sequence Insurance Name Policy Number Policy Balderas Covered Member ID Balderas Member ID Guarantor Name 10/13/2022 1 [facility] Shanae Spain [id number] Shanae Spain 11/24/2022 1 [facility] Shanae Paizival [id number] Shanae Spain Notes Date Note Type Note [...] UA negative PVR 123cc GRADY HART PA-C [address] [facility],[address], [place], [address], [place] [facility] 10/13/2022 16:56:30 11/24/2022 text/html HPI Notes: [...] frequency. 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 Reports she has been doing kegel exercises most of her adult life. Denies hematuria, flank pain. No h/o passing stones, recurrent UTI. PVR 77 cc UA negative ___ -Previously worked as nurse, held bladder all day. -CT AP W in January 2022 reveals non-obstructing 4mm right renal stone, lower pole. -gall baldder removal (2021) GRADY HART PA-C [address] [place] [address],[address], [place], [address], [facility] 11/24/2022 13:24:35 OBGyn Episode No OBEpisode recorded.
[2024-02-05] MEDS: LACTATED RINGERS 1000 ML 1,000 ML 100 ML IV (10:25)
[2024-02-05 10:30] LABS: Ur HCG Qualitative* Negative (Negative)
[2024-02-05] MEDS: SODIUM CHLORIDE 0.9 % (FLUSH) 10 ML SYRINGE IVF (10:58)
[2024-02-05] MEDS: LACTATED RINGERS 1000 ML 1,000 ML 35 ML IV (11:00)
[2024-02-05] MEDS: COCAINE HCL 4 % 4 ML SOLUTION NOSTRIL-B (11:42)
[2024-02-05] MEDS: BUPIVACAINE 0.5 %/EPI 1:200K 30 ML INJECTION (11:42)
[2024-02-05] MEDS: AYR SALINE NASAL GEL 1 APPLIC NOSTRIL-B (11:42)
[2024-02-05] MEDS: MUPIROCIN 1 GM PACKET 1 APPLIC TOPICAL (11:42)
--- NOTE | 2024-02-05 11:59 | P.ENTPROC_ITS ---
Procedure Note Date of procedure: 02/05/24 Procedure: Preoperative diagnosis nasal obstruction nasal headache left anterior septal deviation, bilateral inferior turbinate hypertrophy, right middle turbinate hypertrophy Postoperative diagnosis same Procedure is septoplasty, submucous partial resection inferior turbinates bilateral, Under general trach anesthesia patient was prepped draped usual fashion the nose decongested and injected. A right hemitransfixion incision was made left anterior tunnel was created. From I freed the septum from its inferior attachments and was able to moved to midline. No cartilage was resected other than a very small piece of the inferior cartilage that was redundant. The hemitransfixion was closed with 2 4-0 chromic sutures. The right inferior turbinate was outfractured. A stab incision was made at the anterior head and a tunnel created with a [place] dissector. A conservative anterior submucous resection was performed Coblation was used to cauterize intramurally the anterior and inferior 10% this was repeated on the left side in identical fashion. The right middle turbinate was simply crushed with the [place] forceps. Silastic stents were secured with 3-0 nylon and is and a Merocel pack was placed on each side of the nose to maintain septal position above the stents. The patient procedure well was taken recovery satisfactory condition blood loss was less than 10 mL. Surgeon: Israel Anthony MD
--- NOTE | 2024-02-05 12:12 | W.ANESCHARGE ---
Anesthesia Charges Start Date/Time Anesthesia Start Date: 02/05/24 Anesthesia Start Time: 11:26 Stop Date/Time Anesthesia Stop Date: 02/05/24 Anesthesia Stop Time: 12:09
[2024-02-05] MEDS: ONDANSETRON 2 MG/ML inj 4 MG IVP (12:31)
[2024-02-05] MEDS: HYDROCODONE/ACETAMIN 7.5-325 TABLET 1 TAB PO (13:01)
[2024-02-05] MEDS: IBUPROFEN 200 MG TABLET PO (13:01)
--- NOTE | 2024-02-05 13:05 | W.PM.ENTPROC ---
Procedure Note Date of procedure: 02/05/24 Procedure: Preop diagnosis nasal obstruction, deviated septum, bilateral inferior turbinate hypertrophy, right middle turbinate hypertrophy, nasal headache Postoperative diagnosis same Procedure nasal septoplasty, submucous partial resection inferior turbinates bilateral Under general trach anesthesia patient was prepped draped usual fashion nose decongested injected. A right hemitransfixion incision was made and left anterior tunnel was created this freed the septum and allowed the left area 2 obstruction to be resolved. The hemitransfixion was closed with 2 4-0 chromic sutures. Stab incision was made in the anterior the right inferior turbinate a tunnel created with a [place] dissector. A conservative anterior submucous resection was performed. Coblation Wand was used to cauterize this area and then intramurally along the inferior 10%. This procedure was repeated on the left side in identical fashion The right middle turbinate was simply crushed with the [place] forceps. Silastic stents were secured with 3-0 nylon and Merocel packing was placed in each side of the nose. Blood loss less than 10 mL. Surgeon: Israel Anthony MD
--- NOTE | 2024-02-05 13:11 | SUR.PHASEII ---
Dr. Anthony here to see pt
--- NOTE | 2024-02-05 13:21 | W.ANESCHARGE ---
Anesthesia Charges Start Date/Time Anesthesia Start Date: 02/05/24 Anesthesia Start Time: 11:26 Stop Date/Time Anesthesia Stop Date: 02/05/24 Anesthesia Stop Time: 12:09
--- NOTE | 2024-02-05 13:40 | SUR.PHASEII ---
pt tolerated crackers and juice. Denies nausea.
== END 2024-02-05 13:41 | disposition home or self-care (01) ==
LOC: OR 10:01
PROVIDERS: PCP Physician Assistant Medical; Visit Provider Otolaryngology
PROC: (CPT 30520; principal; 2024-02-05 11:30)
DX: J34.2 Deviated nasal septum (principal); J34.3 Hypertrophy of nasal turbinates; R51.9 Headache, unspecified; J34.89 Other specified disorders of nose and nasal sinuses
CPT/HCPCS: 30520; 30140; 00160; 81025; A9270; J1100; J2250; J2405; J2704; J2710; J3010; J3490; J7120

== ENCOUNTER 2024-04-17 11:30 | Emergency (ER) | payer OTHER, SELFPAY ==
[2024-04-17 11:44] VITALS: BP 133/85; PULSE 82; RESP 18; TEMP 36.7; O2SAT 98; BMI 33.3
[2024-04-17 11:58] LABS: Appearance Urine Clear (Clear); Bilirubin Urine Negative (Negative); Blood Urine 3+ (Negative); Color Urine Light yellow (Yellow); Glucose Urine Negative (Negative); Ketones Urine Negative (Negative); Leukocyte Esterase Urine 1+ (Negative); Nitrite Urine Negative (Negative); Protein Urine Negative (Negative); Urobilinogen Urine 0.2 (0.2-1.0)
--- NOTE | 2024-04-17 12:02 | ED_ITS ---
HPI - General Adult General Time Seen by Provider: 12:02 Date Seen: 04/17/24 Chief complaint: Urogenital Problems, Female Stated complaint: Cold symptoms, poss bladder infection Time Seen by Provider: 04/17/24 11:33 Source: patient, RN notes reviewed and old records reviewed Mode of arrival: ambulatory Limitations: no limitations History of Present Illness HPI narrative: Have tried to see the patient twice, she is went into the bathroom 4 times since arrival. She did put on the call light from the bathroom, nursing staff responded. She is having some diarrhea right now, wonders if she could be passing a kidney stone. They are going to try to get her back into a room so that I can see her. This 38-year-old female reports lower central pelvic discomfort, she states it almost comes in waves. She states it almost feels like an orgasm but in a bad way, feels uncomfortable. It is quite intense and then will let up. It is recurrent. She has associated dysuria and urinary frequency with this. She has started some diarrhea today, just started her menstrual cycle as well. She is on contraceptive control in the form of patch, is due for her menstrual cycle. She has seen Urology in the past as she has had episodes of UTIs as well as bladder spasms. She does have pyridium, has been taking that as well as pushing fluids. No noted fevers or chills. She has also had a cold with lingering cough for about 2 weeks. She did have septal surgery repair in January of this year with ENT here. She states she is just feeling miserable. She has been able to eat and drink, has been purposely pushing fluids. She has seen neurology in the past for her urinary symptoms, they did try her on oxybutynin but it made her ?crazy?. She has not tried other bladder agents. She notes they have diagnosed her as Lisa menopausal, also has vaginal estrogen that she will use but admits she has not kept up on it. She notes despite drinking copious fluid she feels dry. She has done negative COVID testing at home. Patient has no history of kidney stones ever before. All of her symptoms have been low pelvic or suprapubic pain, no flank pain. Related Data Home Medications ?Medication ?Instructions ?Recorded ?Confirmed alprazolam 0.5 mg tablet 0.5 mg PO DAILY PRN 09/15/22 08/27/24 cranberry fruit PO 03/06/22 02/16/24 escitalopram oxalate 20 mg tablet 20 mg PO DAILY 03/06/22 02/16/24 fluticasone propionate 50 2 spray intranasal DAILY 03/06/22 02/16/24 mcg/actuation nasal spray,suspension (Allergy Relief (fluticasone)) trazodone 50 mg tablet 50 - 100 mg PO HS 03/06/22 02/16/24 fexofenadine-pseudoephedrine ER 1 tab PO DAILY 03/10/22 02/16/24 180 mg-240 mg tablet,ext.release 24 hr (Abigail-D 24 Hour) cetirizine 10 mg tablet 10 mg PO DAILY PRN 02/03/24 02/16/24 estradiol 10 mcg vaginal tablet 10 mcg vaginal .weekly 02/03/24 02/16/24 norelgestromin 150 mcg-e.estradiol 1 patch transdermal Q7D 02/03/24 02/16/24 35 mcg/24 hr weekly transderm patch rosuvastatin 10 mg tablet 10 mg PO DAILY 02/05/24 02/16/24 Previous Rx's ?Medication ?Instructions ?Recorded cefuroxime axetil 500 mg tablet 500 mg PO BID #14 tabs 09/22/23 cephalexin 250 mg capsule 250 mg PO TID #18 caps 02/05/24 ondansetron 4 mg disintegrating 4 mg PO Q8H #10 tabs 02/05/24 tablet hydrocodone 5 mg-acetaminophen 300 1 tab PO Q4H PRN pain #6 tabs 02/12/24 mg tablet amoxicillin 875 mg-potassium 1 tab PO BID #42 tabs 02/16/24 clavulanate 125 mg tablet cephalexin 500 mg tablet 500 mg PO TID #15 tabs 04/17/24 Allergies Allergy/AdvReac Type Severity Reaction Status Date / Time Sulfa (Sulfonamide Allergy Intermediate Verified 04/17/24 11:44 Antibiotics) methylprednisolone Allergy Mild Hives Verified 04/17/24 11:44 oxycodone Allergy Mild Rash Verified 04/17/24 11:44 Review of Systems Status of ROS: Reports: 6 or more systems reviewed and unremarkable except as noted in History and below [facility] Medical History Frequent UTI ?N39.0 - Urinary tract infection, site not specified (ICD-10) History of ovarian cyst ?Z87.42 - Personal history of other diseases of the female genital tract (ICD-10) History of adenomatous polyp of colon (12/16/19) ?Z86.010 - Personal history of colonic polyps (ICD-10) History of abnormal cervical Papanicolaou smear (11/25/11) ?Z87.42 - Personal history of other diseases of the female genital tract (ICD-10) Gestational diabetes mellitus (11/25/11) ?O24.419 - Gestational diabetes mellitus in , unspecified control (ICD-10) Depression ?F32.A - Depression, unspecified (ICD-10) Acute bronchitis with symptoms greater than 10 days ?J20.9 - Acute bronchitis, unspecified (ICD-10) Surgical History History of sinus surgery (2011) ?Z98.890 - Other specified postprocedural states (ICD-10) Family History Paternal Grandfather Coronary artery disease Mother Diabetes Anxiety Depression Father Anxiety Social History Narrative: Does not exercise- will start again , RN [employer], works from home, 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-smoker Social drinker- 0-1/week Smoking Status: Never smoker Do you use any of these nicotine containing products: None Second hand tobacco smoke exposure: No How often do you have a drink containing alcohol: monthly or less Alcohol type: hard liquor How many standard drinks containing alcohol do you have on a typical day: 1 or 2 How often do you have six or more drinks on one occasion: Never AUDIT-C Alcohol total score: 1 Non-prescribed substance use: denies use Caffeine: Yes (2-3 CUPS DAILY) Are you using contraception or practicing any form of control: Yes (MIRENA) Exam Const: Vital Signs, click to edit/add: Vital Signs - 24 hr 04/17/24 11:44 04/17/24 12:15 Temperature 98.1 F Pulse Rate [Pulse Oximeter] 82 Respiratory Rate 18 Blood Pressure [[facility]] 133/85 Pulse Oximetry 98 98 Oxygen Delivery Me thod Room Air Shanae's ambulatory back from the bathroom, alert, interactive, no apparent distress. Pupils equal round reactive to light, sclera clear, face atraumatic. Able to speak in complete sentences, no hoarseness, speech is normal. Neck supple. Lungs are clear, no wheezing crackles, no tachypnea. CV regular rate and rhythm, no murmur, normal S1-S2, no S3-S4. Abdomen is soft, nondistended, mild suprapubic tenderness without rebound or guarding, do not feel any organomegaly or masses. Skin visualized without rash. Documenting provider has reviewed patient's vital signs: yes Course Course ED Course: Patient was pretty symptomatic and not feeling well in the bathroom, has had 4 trips to the bathroom. Will initiate some IV medicines to help control her symptoms. She has developed diarrhea but also just started her menstrual cycle, has at underlying respiratory symptoms on top of current urinary tract symptoms. Will get two view chest x-ray just to ensure no secondary pneumonia. Will obtain full complement of labs, urinalysis is pending. She is not hypoxic nor febrile at this time but will continue to monitor on pulse oximetry. Will give her 500 mL normal saline, 4 mg IV Zofran and 15 mg IV Toradol to try to help with symptom control. Reevaluation(s) Time of Reevaluation #1: 12:42 Reevaluation #1: Have reviewed with patient her urinalysis is showing significant white blood cells but not reds. She is on pyridium. Her urine culture from November showed pansensitive E coli, had pyuria with that episode as well. She is in agreement for IV dose of Rocephin to help treat her symptoms, she feels quite miserable at this time. Time of Reevaluation #2: 13:46 Reevaluation #2: Patient is feeling bit better. We discussed that there certainly appears to be UTI. Urine culture is pending, she will be notified if there is a need to change antibiotics after 48 hours based on culture results. Will initiate oral Keflex. She and I discussed normal chest x-ray, otherwise normal labs. Her cough is just lingering, is really not that bad. I think she likely just has a post viral cough in just needs further time. No indication for further management of this other than [id number] symptomatic treatment. We had discussed doing a triple viral swab but she is 2 weeks into this, have not even heard her cough while here. Think it is reasonable to forego this test and she does agree. Vital Signs Vital signs: Initial Vital Signs Temperature 98.1 F 04/17/24 11:44 Temperature Source Temporal Artery Scan 04/17/24 11:44 Pulse Rate 82 04/17/24 11:44 Pulse Rhythm Regular 04/17/24 11:44 Respiratory Rate 18 04/17/24 11:44 Blood Pressure 133/85 04/17/24 11:44 Blood Pressure Mean 101 04/17/24 11:44 Blood Pressure Position Sitting 04/17/24 11:44 Pulse Oximetry 98 04/17/24 11:44 Oxygen Delivery Method Room Air 04/17/24 11:44 Vital Signs Temperature 98.1 F 04/17/24 11:44 Pulse Rate 82 04/17/24 11:44 Respiratory Rate 18 04/17/24 11:44 Blood Pressure 133/85 04/17/24 11:44 Pulse Oximetry 98 04/17/24 11:44 Oxygen Delivery Method Room Air 04/17/24 11:44 Temperature 98.1 F 04/17/24 11:44 Pulse Rate 82 04/17/24 11:44 Respiratory Rate 18 04/17/24 11:44 Blood Pressure 133/85 04/17/24 11:44 Pulse Oximetry 98 04/17/24 12:15 Oxygen Delivery Method Room Air 04/17/24 11:44 Medications Administered Medications: Discontinued Medications Generic Name Dose Route Start Last Admin Trade Name Freq PRN Reason Stop Dose Admin Sodium Chloride 500 mls @ 500 mls/hr 04/17/24 12:25 04/17/24 12:32 0.9 % Sodium Chloride 500 Ml IV 04/17/24 13:24 500 mls/hr .Q1H ONE Administration Ceftriaxone Sodium 1 gm/ 100 mls @ 200 mls/hr 04/17/24 12:44 04/17/24 12:53 Sodium Chloride IVPB 04/17/24 12:45 200 mls/hr ONCE ONE Administration Ketorolac Tromethamine 15 mg 04/17/24 12:25 04/17/24 12:32 Ketorolac 15 Mg/Ml Inj IVP 04/17/24 12:26 15 mg ONCE ONE Administration Ondansetron HCl 4 mg 04/17/24 12:25 04/17/24 12:32 Ondansetron 2 Mg/Ml Inj IVP 04/17/24 12:26 4 mg ONCE ONE Administration Medical Decision Making Lab Data Lab results reviewed: Yes I reviewed the patient's lab results Labs: Lab Results 04/17/24 04/17/24 04/17/24 Range/Units 11:35 12:25 12:25 WBC 7.53 (4.50-11.00) K/uL RBC 4.59 (4.00-5.20) m/uL Hgb 13.7 (12.0-16.0) gm/dL Hct 40.3 (33.0-51.0) % MCV 88 (80-100) fL MCH 30 (26-34) pg MCHC 34 (32-36) gm/dL RDW Coeff of Kavin 12.2 (11.5-15.5) % Plt Count 279 (140-440) K/uL Neut % (Auto) 60.0 (42.0-72.0) % Lymph % (Auto) 30.8 (20-44) % Pender % (Auto) 8.1 (0.0-11.0) % Eos % (Auto) 0.9 (0.0-7.0) % Baso % (Auto) 0.1 (0.0-3.0) % Neut # (Auto) 4.51 (1.7-7.0) K/uL Lymph # (Auto) 2.32 (0.90-2.90) K/uL Pender # (Auto) 0.60 (0.00-0.90) K/UL Eos # (Auto) 0.07 (0.00-0.50) K/uL Baso # (Auto) 0.01 (0.00-0.30) K/uL Abs Immat Gran (auto) 0.01 (0.00-0.30) K/uL Imm/Tot Granulo (auto) 0.1 % Sodium 136 (135-149) mmol/L Potassium 4.1 (3.6-5.1) mmol/L Chloride 103 (96-114) mmol/L Carbon Dioxide 25 (20-32) mmol/L Anion Gap 8 (7-15) mEq/L BUN 11 (5-24) mg/dL Creatinine 0.7 (0.5-1.5) mg/dL Estimated Creat Clear 97.09 Estimated GFR 113 ml/min Glucose 95 (60-115) mg/dL Lactate 1.5 (0.5-1.9) mmol/L Calcium 9.1 (8.4-10.6) mg/dL Total Bilirubin 0.4 (0.1-1.5) mg/dL AST 33 (12-35) U/L ALT 20 (4-35) U/L Alkaline Phosphatase 59 (40-150) U/L C-Reactive Protein 0.7 (0.5-1.0) mg/dL Total Protein 7.6 (6.0-8.3) g/dL Albumin 4.5 (3.3-5.0) g/dL Procalcitonin < 0.03 L Cancelled (<0.50) ng/mL Urine Color Light yellow (Yellow) Urine Appearance Clear (Clear) Urine pH 7.0 (5.0-8.5) Ur Specific [place] 1.010 (1.000-1.030) Urine Protein Negative (Negative) Urine Glucose (UA) Negative (Negative) Urine Ketones Negative (Negative) Urine Blood 3+ A (Negative) Urine Nitrite Negative (Negative) Urine Bilirubin Negative (Negative) Urine Urobilinogen 0.2 (0.2-1.0) Ur Leukocyte Esterase 1+ A (Negative) Urine RBC 0-2 (0-2) Urine WBC 25-50 A (0-5) Ur Squamous Epith Cells Few (None-Few) Urine Bacteria Few A (None) Urine HCG, Qual (Negative) 04/17/24 Range/Units Unknown WBC (4.50-11.00) K/uL RBC (4.00-5.20) m/uL Hgb (12.0-16.0) gm/dL Hct (33.0-51.0) % MCV (80-100) fL MCH (26-34) pg MCHC (32-36) gm/dL RDW Coeff of Kavin (11.5-15.5) % Plt Count (140-440) K/uL Neut % (Auto) (42.0-72.0) % Lymph % (Auto) (20-44) % Pender % (Auto) (0.0-11.0) % Eos % (Auto) (0.0-7.0) % Baso % (Auto) (0.0-3.0) % Neut # (Auto) (1.7-7.0) K/uL Lymph # (Auto) (0.90-2.90) K/uL Pender # (Auto) (0.00-0.90) K/UL Eos # (Auto) (0.00-0.50) K/uL Baso # (Auto) (0.00-0.30) K/uL Abs Immat Gran (auto) (0.00-0.30) K/uL Imm/Tot Granulo (auto) % Sodium (135-149) mmol/L Potassium (3.6-5.1) mmol/L Chloride (96-114) mmol/L Carbon Dioxide (20-32) mmol/L Anion Gap (7-15) mEq/L BUN (5-24) mg/dL Creatinine (0.5-1.5) mg/dL Estimated Creat Clear Estimated GFR ml/min Glucose (60-115) mg/dL Lactate (0.5-1.9) mmol/L Calcium (8.4-10.6) mg/dL Total Bilirubin (0.1-1.5) mg/dL AST (12-35) U/L ALT (4-35) U/L Alkaline Phosphatase (40-150) U/L C-Reactive Protein (0.5-1.0) mg/dL Total Protein (6.0-8.3) g/dL Albumin (3.3-5.0) g/dL Procalcitonin (<0.50) ng/mL Urine Color (Yellow) Urine Appearance (Clear) Urine pH (5.0-8.5) Ur Specific [place] (1.000-1.030) Urine Protein (Negative) Urine Glucose (UA) (Negative) Urine Ketones (Negative) Urine Blood (Negative) Urine Nitrite (Negative) Urine Bilirubin (Negative) Urine Urobilinogen (0.2-1.0) Ur Leukocyte Esterase (Negative) Urine RBC (0-2) Urine WBC (0-5) Ur Squamous Epith Cells (None-Few) Urine Bacteria (None) Urine HCG, Qual Negative (Negative) Imaging Data Chest x-ray: Attestation: I have reviewed the pertinent imaging results. Radiologist's impression: Patient: SHANAE TAYLOR Facility:?[facility] Patient ID:?[id number] Site Patient ID:?[id number]. Site :?[id number] Study:?XRay-Chest 2 view-04/17/2024 12:56:59 PM Ordering Physician:?Kiarra Healy Final Report: INDICATION: Cough. TECHNIQUE: Chest 2 views. COMPARISON: 02/25/2018. FINDINGS: Cardiovascular and mediastinum: Heart size is normal. Unremarkable mediastinum. Lungs and pleural spaces: Lungs are clear. No sign of infiltrate or mass. No sign of pleural effusion. No pneumothorax. Bones and soft tissues: No significant findings. IMPRESSION: Negative chest. Dictated by Paolo Méndez MD @ 04/17/2024 1:37:49 PM (Electronic Signature) Discharge Plan Discharge Clinical Impression: Post-viral cough syndrome Urinary tract infection Qualifiers: Urinary tract infection type: acute cystitis Hematuria presence: without hematuria Qualified Code(s): N30.00 - Acute cystitis without hematuria Patient Disposition: Home, Self-Care Condition: Stable Instructions: Urinary Tract Infection in Women (ED), Acute Cough (ED) Additional Instructions: Start Keflex this evening and take as prescribed. We will certainly let you know if the urine culture requires a change in antibiotics. Otherwise push fluids, can use your Pyridium as well as Tylenol/ibuprofen per bottle directions as needed for symptom control. If you are not improving in the next couple of days, worsening at any point or have new concerns, please seek re-evaluation. Your cough may linger for days to weeks, it is likely just post inflammatory change from having had a virus. Can use [id number] medicines for coughing as needed. The cough hopefully should continue to improve over the next few weeks. Activity Level: Activity as Tolerated Prescriptions: New cephalexin 500 mg tablet 500 mg PO TID Qty: 15 0RF No Action cefuroxime axetil 500 mg tablet 500 mg PO BID Qty: 14 0RF amoxicillin-pot clavulanate 875-125 mg tablet 1 tab PO BID Qty: 42 1RF alprazolam 0.5 mg tablet 0.5 mg PO DAILY PRN cranberry fruit PO escitalopram oxalate 20 mg tablet 20 mg PO DAILY fluticasone propionate [Allergy Relief (fluticasone)] 50 mcg/actuation spray,suspension 2 spray intranasal DAILY Rx Instructions: administer into each nostril trazodone 50 mg tablet 50 - 100 mg PO HS fexofenadine-pseudoephedrine [Abigail-D 24 Hour] 180-240 mg tablet extended release 24 hr 1 tab PO DAILY cetirizine 10 mg tablet 10 mg PO DAILY PRN estradiol 10 mcg tablet 10 mcg vaginal .weekly norelgestromin-ethin.estradiol 150-35 mcg/24 hr patch weekly 1 patch transdermal Q7D Patient Comments: patch on RLQ Rx Instructions: apply once weekly for 3 weeks of a 4-week cycle rosuvastatin 10 mg tablet 10 mg PO DAILY cephalexin 250 mg capsule 250 mg PO TID Qty: 18 0RF ondansetron 4 mg tablet,disintegrating 4 mg PO Q8H Qty: 10 0RF hydrocodone-acetaminophen 5-300 mg tablet 1 tab PO Q4H PRN (Reason: pain) Qty: 6 0RF Follow Up/Referrals: Almaz Rose, PAClyde [Primary Care Provider] - Stand Alone Forms: [facility] Info Instructions
[2024-04-17 12:15] VITALS: O2SAT 98
[2024-04-17 12:18] LABS: Bacteria Urine Few; RBC Urine 0-2 (0-2); Squamous Epithelial Cell Urine Few (None-Few); WBC Urine 25-50 (0-5)
--- NOTE | 2024-04-17 12:30 | CRLHL7_ITS ---
For Patients: As a result of the Century Cures Act, medical imaging exams and procedure reports are released immediately into your electronic medical record. You may view this report before your referring provider. If you have questions, please contact your health care provider. INDICATION: Cough. TECHNIQUE: Chest 2 views. COMPARISON: 02/25/2018. FINDINGS: Cardiovascular and mediastinum: Heart size is normal. Unremarkable mediastinum. Lungs and pleural spaces: Lungs are clear. No sign of infiltrate or mass. No sign of pleural effusion. No pneumothorax. Bones and soft tissues: No significant findings. IMPRESSION: Negative chest. Dictated by Paolo Méndez MD @ 04/17/2024 1:37:49 PM (Electronically Signed)
[2024-04-17] MEDS: ONDANSETRON 2 MG/ML inj 4 MG IVP (12:32)
[2024-04-17] MEDS: 0.9 % SODIUM CHLORIDE 500 ML 500 ML IV (12:32)
[2024-04-17] MEDS: KETOROLAC 15 MG/ML inj IVP (12:32)
[2024-04-17 12:33] LABS: Lactate* 1.5 mmol/L (0.5-1.9)
[2024-04-17 12:36] LABS: Basophils Absolute Auto 0.01 K/uL (0.00-0.30); Basophils Percent Auto 0.1 % (0.0-3.0); Eosinophils Absolute Auto 0.07 K/uL (0.00-0.50); Eosinophils Percent Auto 0.9 % (0.0-7.0); Hematocrit 40.3 % (33.0-51.0); Hemoglobin* 13.7 gm/dL (12.0-16.0); Immature Granulocytes Abs Auto 0.01 K/uL (0.00-0.30); Immature Granulocytes Pct Auto 0.1 %; Lymphocytes Absolute Auto 2.32 K/uL (0.90-2.90); Lymphocytes Percent Auto 30.8 % (20-44); Mean Corpuscular HGB Conc 34 gm/dL (32-36); Mean Corpuscular Hemoglobin 30 pg (26-34); Mean Corpuscular Volume 88 fL (80-100); Monocytes Percent Auto 8.1 % (0.0-11.0); Neutrophils Absolute Auto 4.51 K/uL (1.7-7.0); Platelet Count* 279 K/uL (140-440); RDW Coefficient of Variation % 12.2 % (11.5-15.5); Red Blood Count 4.59 m/uL (4.00-5.20); White Blood Count* 7.53 K/uL (4.50-11.00)
[2024-04-17 12:38] LABS: Slide Review Reflex No
[2024-04-17 12:46] LABS: Ur HCG Qualitative* Negative (Negative)
[2024-04-17 12:50] LABS: Albumin* 4.5 g/dL (3.3-5.0); Chloride* 103 mmol/L (96-114); Potassium* 4.1 mmol/L (3.6-5.1); Sodium* 136 mmol/L (135-149)
[2024-04-17 12:52] LABS: Creatinine* 0.7 mg/dL (0.5-1.5); Est. Creatinine Clearance* 97.09; Estimated Glomerular Filt Rate 113 ml/min
[2024-04-17 12:53] LABS: Alanine Aminotransferase* 20 U/L (4-35); Alkaline Phosphatase* 59 U/L (40-150); Anion Gap 8 mEq/L (7-15); Aspartate Amino Transferase* 33 U/L (12-35); Bilirubin Total* 0.4 mg/dL (0.1-1.5); Blood Urea Nitrogen* 11 mg/dL (5-24); Carbon Dioxide* 25 mmol/L (20-32); Glucose* 95 mg/dL (60-115); Total Protein* 7.6 g/dL (6.0-8.3)
[2024-04-17] MEDS: cefTRIAXone 1 GM in 0.9 % SODIUM CHLORIDE Mini-bag 100 ML IVPB (12:53)
[2024-04-17 12:54] LABS: Calcium* 9.1 mg/dL (8.4-10.6)
[2024-04-17 12:56] LABS: C Reactive Protein* 0.7 mg/dL (0.5-1.0)
[2024-04-17 13:00] VITALS: BP 128/74; PULSE 72; RESP 18; O2SAT 98
--- OUTSIDE RECORDS SUMMARY | 2024-04-17 13:11 | XMS_ITS | Clinical Summary ---
Author Organization [facility] Address [place], [place] [address] Care Team Providers Care Photogrammetric Surveyor Name Role Phone Almaz Rose Primary Care [...] if needed. 30 tablet 1 08/20/2020 Active ALPRAZolam (XANAX) 0.5 mg tabletIndications:An xiety Take 1 tab daily as needed for anxiety. 15 Tablet 02/03/2022 Active EPINEPHrine (EpiPen) 0.3 mg/0.3 mL auto-injectorIndicat ions:Urticaria, idiopathic Inject 0.3 mg (1 Pen) intramuscular each time if needed for Allergic Reaction. 2 Each 3 10/13/2023 Active cetirizine (ZyrTEC) 10 mg tablet Take 10 mg by mouth once daily. Active Azelastine 205.5 mcg (0.15 %) nasal spray Inhale 205.5 mcg into affected nostril(s) two times daily. Active escitalopram oxalate (LEXAPRO) 20 mg tabletIndications:An xiety TAKE 1 TABLET BY MOUTH IN THE MORNING 90 Tablet 1 12/19/2023 Active ethinyl estradiol-norelgestr om (ORTHO EVRA) 150-35 mcg/24 hr patchIndications:Enc ounter for surveillance of transdermal patch hormonal contraceptive device Apply 1 Patch on dry, clean, hairless skin once weekly. Ortho Evra 9 Patch 3 01/14/2024 Active estradioL (VAGIFEM) 10 mcg tab vaginal tabletIndications:Dy spareunia in female PLACE 1 INSERT VAGINALLY DAILY FOR 1 WEEK, THEN PLACE 1 INSERT VAGINALLY TWICE WEEKLY THEREAFTER DIRECTED 24 Tablet 4 02/01/2024 Active rosuvastatin (CRESTOR) 10 mg tabletIndications:Hy perlipidemia, unspecified hyperlipidemia type Take 1 Tablet (10 mg) by mouth at bedtime. 90 Tablet 3 01/27/2024 Active traZODone (DESYREL) 50 mg tabletIndications:In somnia, idiopathic Take 1 Tablet (50 mg) by mouth at bedtime, may repeat once. 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 Encounters Date Type Department Care Team Description 03/11/2024 Refill [facility] [address] [place] [address] Almaz Rose PA Refill Request (Trazodone) 02/01/2024 1:30 PM CDT Ancillary Procedure [facility] [address] [place] [address] Anay Gracia DO 02/01/2024 Travel 01/30/2024 Travel 01/27/2024 8:50 AM CDT Preop Visit [facility] [address] [place] [address] Almaz Rose PA Preoperative Exam (sinus) 01/27/2024 Travel 01/26/2024 Refill [facility] [address] [place] [address] Zhane Blanc, HANNA Refill Request (Estradiol) from Last 3 Months Immunizations Name Administration [...] file 08/10/2023 Food Insecurity Answer Date Recorded Do you worry your food will run out before you are able to buy more? 1 08/10/2023 Transportation Needs Answer Date Record ed Lack of Transportation (Medical) 1 08/10/2023 Housing Stability Answer Date Recorded What is your housing situation today? 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 Plan of Treatment Health Maintenance Due Date Last Done Comments HIV for age 15-65 09/18/1999 Hepatitis C screening for age 18-79 2002 COVID-19 vaccine series ( season) 2024 05/23/2022, 05/20/2021, 11/04/2020, Additional history exists Influenza for age 9-49 02/21/2024 2, 05/20/2021, 04/20/2020, Additional history exists BMI (ht and wt on same day) for age 18+ 08/10/2024 08/10/2023, 04/22/2023, 03/03/2022, Additional history exists Depression screening for age 12+ 10/13/2024 10/14/2023, 05/23/2022, 08/20/2020 Pap test for age 21-65 04/22/2028 3, [...] PM CDT Abnormal uterine bleeding (AUB) HPV HIGH RISK Routine 04/22/2023 9:57 AM CDT Screening for cervical cancer from Last 3 Months or Most Recently Relevant to Health Maintenance Results * US HYSTEROSONOGRAM (02/01/2024 2:23 PM CDT) Anatomical Region Laterality Modality UTERUS Ultrasound Impressions 02/02/2024 5:21 PM CDT 1. The hysterosonogram is normal. Maya Zambrano MD 02/02/2024 5:18 PM [facility] [address] [address] Narrative 02/02/2024 5:21 PM CDT Table formatting from the original result was not included. For Patients: Results are automatically released to your [employer] ([employer]) account once available, in compliance with federal [...] the total being 7 mm. Zhane Blanc CREW CHIEF US * HPV HIGH RISK (04/22/2023 9:57 AM CDT) TYPE 16 Negative Negative 04/24/2023 1:47 PM CDT [facility] TYPE 18 Negative Negative 04/24/2023 1:47 PM CDT [facility] OTHER HIGH RISK TYPES Negative Negative 04/24/2023 1:47 PM CDT [facility] Other (Cervical) Non-Blood / Unknown 04/22/2023 9:57 AM CDT 04/22/2023 4:53 PM CDT Narrative [facility] - 04/24/2023 1:47 PM CDT HPV types 16, 18, 31, 33, 35, 39, 45, 51, 52, 56, 58, 59, 66 and 68 DNA were undetectable or below the pre-set threshold. Methodology: [facility] 4800 HPV Test Almaz [facility] [address] [place] [address], from Last 3 Months or Most Recently Relevant to Health Maintenance Care Teams Photogrammetric Surveyor Relationship Specialty Start Date End Date Alamz Rose PA [address] [place] [address] PCP - General Physician Beauty Sales Advisor 10/22/20
--- OUTSIDE RECORDS SUMMARY | 2024-04-17 13:11 | XMS_ITS | Clinical Summary ---
Author Organization [facility] Address [address] [place] [address] Care Team Providers Care Laborer Filter Plant Name Role Phone Piper Michael MD Primary [...] for each transition of care or referral. [facility] Center[facility] Allergies Active Allergy Reactions Criticality Noted Date [...] onal and perennial allergic rhinoconjunctivitis Place [address] [place] into both nostrils two times a day. [...] 07/19/1999,02/28/1999,0 01/24/1999 Influenza IIV4 (Quadrivalent ) 0.5mL (83336) 05/03/2019,03/20/2016,03/29/2014 Influenza, Unspecified Formulation 05/27/2004 MMR 02/27/2011,01/18/1986 MPSV4 (Menomune) 03/02/2003 OPV, Trivalent (Orimune or tOPV) 990,09/15/1986,03/20/1985,1984,1984 Td (7+ yrs) 12/01/2018 Tdap 01/20/2008,11/18/2006 Typhoid (Typhim Vi, IM) 07/05/2019 Family History Medical History Relation Name Comments Adopted Mother Anxiety Mother Tremor Mother Coronary Artery Disease Paternal Grandfather [place] Cancer, Colon Paternal Grandmother Diabetes Paternal Grandmother [...] 04/27/2021 04/27/2020, 05/03/2019 COVID-19 Vaccine ( season) 2024 11/04/2020, 10/14/2020 Influenza (#1) 2024 04/20/2020, 04/22, [...] on patient's age to complete this topic RSV Aged Out No longer eligi ble based [...] Endoscopy, Colon, Screening/Diagnostic (12/16/2019 2:54 PM CDT) Anatomical Region Laterality Modality Other 12/16/2019 2:54 PM CDT Narrative 12/16/2019 2:54 PM CDT Patient Name: Shanae [...] oxygen saturations were monitored ? continuously. The [id number] was ? introduced through the anus and ? advanced to the terminal ileum. The ? colonoscopy was performed without ? difficulty. The patient tolerated the ? procedure well. The quality of the ? bowel preparation was evaluated using ? the BBPS ([place] Bowel Preparation ? Scale) with scores of: [...] Procedure Code(s): ?? --- Professional --- ? 46439, Colonoscopy, flexible; with ? removal of tumor(s), polyp(s), or ? other lesion(s) by snare technique ? 28387, Moderate sedation; each ? additional 15 minutes [...] (additional time may ? be reported with 39208, as ? appropriate) Diagnosis Code(s): ?? --- Professional --- ? K64.4, Residual hemorrhoidal skin tags ? 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 R10.31, Right lower quadrant pain ? K59.00, Constipation, unspecified CPT copyright 2018 [employer]. All rights reserved. The codes documented in this report are preliminary and upon livestock caretaker review may be revised to meet current [...] and oxygen saturations were monitored continuously. The CF-[id number] was introduced through the anus and advanced to the terminal ileum. The colonoscopy was performed without difficulty. The patient tolerated the procedure well. The quality of the bowel preparation was evaluated using the BBPS ([place] Bowel Preparation Scale) with scores of: Right [...] previously scheduled. Procedure Code(s): --- Professional --- 78512, Colonoscopy, flexible; with removal of tumor(s), polyp(s), or other lesion(s) by snare technique 33844, Moderate sedation; each additional 15 minutes intraservice time G0500, Moderate sedation services provided by the same physician or other qualified health healthcare administration intern performing a gastrointestinal endoscopic service that sedation supports, requiring the presence of an independent trained observer to assist in the monitoring of the patient's level of consciousness and physiological status; initial 15 minutes of intra-service time; patient age 5 years or older (additional time may be reported with 65795, as appropriate) Diagnosis Code(s): --- Professional --- K64.4, Residual hemorrhoidal skin tags D12.2, Benign neoplasm of ascending colon R10.31, Right lower quadrant pain K59.00, Constipation, unspecified CPT copyright 2018 [employer]. All rights reserved. The codes documented in this report are preliminary and upon livestock caretaker review may be revised to meet current compliance requirements. Maicol Pattersonn, 12/16/2019 3:38:51 PM Number of Addenda: 0 Note Initiated On: 12/16/2019 2:54 PM Endoscopy Report Piper Michael MD ET GI PROCEDURE ORDERABLES * HIV 1/2 Ag/Ab 4th Generation (12/14/2019 9:57 AM CDT) HIV 1/2 Antigen/Antib martha (4th generation) Negative (Non Reactive) Negative (Non Reactive) 12/14/2019 1:26 PM CDT [facility] Comment:HIV-1 p24 Antigen an d HIV-1/HIV-2 Antibody not detected Blood Venipuncture / Unknown 12/14/2019 9:57 AM CDT 12/14/2019 10:10 AM CDT Piper Michael MD LAB_1 Performing Organization Address City/State/[facility] Co de Phone Number [facility] [address] * Pap Smear (04/13/2018 11:30 AM CDT) 04/13/2018 11:3 0 AM CDT Narrative PN SOFT - 04/29/2018 7:12 AM OUTPATIENT CODER FINAL GYNECOLOGICAL CYTOLOGY REPORT Pathology #: [id number] ?Date Obtained: 04/13/2018 ? Date Received: 04/14/2018 [...] and false-negative reports may occur. Performed at [facility], [address] [place] [address] Piper Michael MD LAB_1 PN SOFT [address] [place] [address] from Last 3 Months or Most Recently Relevant to Health Maintenance Care Teams Laborer Filter Plant Relationship Specialty [place] [address] [address] [place] [address] PCP - General Family Practice 04/13/18
--- OUTSIDE RECORDS SUMMARY | 2024-04-17 13:11 | XMS_ITS | Data Portability ---
Author Organization [place] [facility] Address [address] [place] [address] Care Team Providers Care Forging Press Setter Up Name Role Phone MAGNUS LYLE Primary Care Provider Assessment No assessment recorded. Plan of Treatment Reminders Order Date Submit Date Provider Last Modified By Organization Details Last Modified Time Details Appointments None recorded. Lab urinalysi s, dipstick 2022 023 [facility], [address], [place], [address], 3 10:55:24 urinalysi s, dipstick 2022 023 [employer] [facility], [address], [place], [address], 3 12:35:57 Referral pelvic floor therapy referral - Please contact patient to schedule 2022 023 [facility], [address] [place], [address], 3 10:47:53 Procedures None recorded. Surgeries None recorded. Imaging None recorded. Medication Orders Flomax 0.4 mg capsule 2022 023 [id number], [address] [place], [place], [phone], 3 12:34:45 oxybutyni n chloride ER 10 mg tablet,ex tended release 24 hr 2022 023 [id number], [address] [place], [place], [phone], 11:01:32 Patient TargetsNo targets recorded. Patient InstructionsNo instructions recorded. Reason for Referral Pelvic Floor Therapy Referra l for Overactive urinary bladder Please contact patient to schedule Referring Physician: Grady Hart, Urology, Encounter Date: 11/24/2022 Results Created Date Observation Date Name Description Value Unit Range Abnormal Flag Note LastModifiedBy Organization Detail LastModifiedTime 10/14/1910/13/2022 urina lysis , dipst ick pH-Status 6.5 Not Available [facility] [address], [place], [address], 10/13/2022 10:18:23 11/25/19 23 11/24/2022 urina lysis , dipst ick Color-Status Yellow Not Available [facility] [address], [place], [address], 11/24/2022 12:35:04 11/25/19 23 11/24/2022 urina lysis , dipst ick Clarity-Stat us Clear Not Available [facility] [address], [place], [address], 11/24/2022 12:35:04 11/25/1911/24/2022 urina lysis , dipst ick Glucose-Stat us Negati ve Not Available [facility] [address], [place], [address], 11/24/2022 12:35:04 11/25/19 23 11/24/2022 urina lysis , dipst ick Bilirubin-St atus Negati ve Not Available [facility] [address], [place], [address], 11/24/2022 12:35:04 11/25/19 23 11/24/2022 urina lysis , dipst ick Ketones-Stat us Negati ve Not Available [facility] [address], [place], [address], 11/24/2022 12:35:04 11/25/19 23 11/24/2022 urina lysis , dipst ick Sp [place]-Stat us 1.010 Not Available [facility] [address], [place], [address], 11/24/2022 12:35:04 11/25/19 23 11/24/2022 urina lysis , dipst ick pH-Status 7.5 Not Available [facility] [address], [place], [address], 11/24/2022 12:35:04 11/25/19 23 11/24/2022 urina lysis , dipst ick Urobilinogen -Status 0.2 Not Available [facility] [address], [place], [address], 11/24/2022 12:35:04 11/25/19 23 11/24/2022 urina lysis , dipst ick Nitrates-Sta tus negati ve Not Available [facility] [address], [place], [address], 11/24/2022 12:35:04 11/25/19 23 11/24/2022 urina lysis , dipst ick Blood-Status Negati ve Not Available [facility] [address], [place], [address], 11/24/2022 12:35:04 11/25/19 23 11/24/2022 urina lysis , dipst ick Leuko-Status Negati ve Not Available [facility] [address], [place], [address], 11/24/2022 12:35:04 11/25/19 23 11/24/2022 urina lysis , dipst ick Specimen Type Voided Not Available [facility] [address], [place], [address], 11/24/2022 12:35:04 10/11/19 23 02/10/2022 CT, abdom en + pelvi s, w/ contr ast No observ ation record ed. [email or web address] Not Available 10/13 10:57:17 Result Notes None recorded. Procedures Surgical History Date Name Laterality Status Provider Name and Address Organization Details Recorded Time 3 Bladder Scan completed GRADY HART PA-C [address] [place], [place] [address], [place], [address], [facility] 11/24/2022 12:35:01 3 Bladder Scan completed Telma Boss [facility] 10/13/2022 10:18:19 Imaging Results Imaging Date Name Status LastModified by Organiz ation Details LastModified Time 02/10/2022 CT, abdomen + pelvis, w/ contrast completed Information not available 10/13/2022 10:57:17 Procedure Notes None recorded. Medical Equipment None Reported. Allergies Allergen ID Allergen Name Allergen Category Reaction Reaction Severity Criticality Documentation Date Start Date Code Code System Note Provider Name and Address Organization Details Recorded Time 525010 Substance with sulfonami de structure and antibacte rial mechanism of action (substanc e) medicatio n Not available Not available Not available 10/13/2022 75874 8003 SNOMED Telma Gneiting deidre [facility] 10:21:39 140568 oxycodone medicatio n Not available Not available Not available 10/13/2022 7804 RxNorm Telma Gneiting deidre, [facility] 10:23:51 343128 methylpre dnisolone medicatio n Not available Not available Not available 10/13/2022 6902 RxNorm Telma Gneiting deidre, [facility] 3 10:24:06 Medications Name Sig Start [...] Updated DateTime 10/13/2022 165.1 cm 33.3 kg/m2 79278.47 cata Telma Boss [facility] 10/13/2022 10:20:55 Date Recorded Body height Body mass index (BMI) Body weight Provider Name and Address Organization Details Last Updated DateTime 11/24/2022 165.1 cm 33.3 kg/m2 56059.47 cata GRADY HART PA-C [address] [facility] [address], [place], [address], [facility] 11/24/2022 12:20:17 Social History Question Answer Notes LastModified by Organizat ion Details LastModified Time Tobacco Smoking Status Never Smoker Telma Armandozoe deidre [facility] 10/13/2022 10:22:48 What Was The Date [...] Encounter Closed Date Diagnosis/Indication Diagnosis SNOMED-CT Code Diagnosis ICD10 Code [id number] [facility] [address] [place] [address] 10/13/2022 09:57:49 10/17/2022 14:53:39 Dysuria 55403078 R30.0 Overactive urinary bladder 444745037 N32.81 Cystocele 114749141 N81. 10 Incomplete emptying of urinary bladder 100464826 R39.14 [id number] GRADY HART PA-C [facility] [address] [place] [address] 11/24/2022 12:14:02 12/01/2022 08:31:32 Overactive urinary bladder 932063037 N32.81 Health Concerns Section Related Observation LastModified by Organization Detai ls LastModified Time None Recorded Concern Status LastModified by Organization Details LastModified Time None Recorded Advance Directives Directive None Recorded Payers Encounter Date Sequence Insurance Name Policy Number Policy Balderas Covered Member ID Balderas Member ID Guarantor Name 10/13/2022 1 [facility] [id number] Shanae Spain 11/24/2022 1 [facility] Rosival [id number] Shanae Grabiel Notes Date Note Type Note Provider Name [...] negative PVR 123cc GRADY HART PA-C [address] [facility],[address], [place], [address], [place] [facility] 10/13/2022 16:56:30 11/24/2022 text/html HPI Notes: [...] frequency. She does have IUD; unsure if ANALYSIS LEAD or bladder pain. Reports she has been doing kegel exercises most of her adult life. Denies hematuria, flank pain. No h/o passing stones, recurrent UTI. PVR 77 cc UA negative ___ -Previously worked as nurse, held bladder all day. -CT AP W in January 2022 reveals non-obstructing 4mm right renal stone, lower pole. -gall baldder removal (2021) GRADY HART PA-C [address] [place] [address],[address], [place], [address], [facility] 11/24/2022 13:24:35 OBGyn Episode No OBEpisode recorded.
[2024-04-17 13:12] LABS: Procalcitonin* < 0.03 ng/mL (<0.50)
[2024-04-17 14:00] VITALS: BP 130/74; PULSE 72; RESP 12; O2SAT 99
[2024-04-17 14:05] VITALS: BP 133/85; PULSE 82; RESP 12; TEMP 36.7
== END 2024-04-17 14:05 | disposition home or self-care (01) ==
PROVIDERS: Emergency Provider Family Medicine; PCP Physician Assistant Medical
DX: R05.1 Acute cough (principal); N30.00 Acute cystitis without hematuria
CPT/HCPCS: 36415; 71046; 80053; 81001; 81025; 83605; 84145; 85025; 86140; 87086; 94761; 96365; 96375; 99284; J0696; J1885; J2405; J7030